=== PATIENT | female | born 1960 | race Caucasian/White ===

== ENCOUNTER 2016-09-11 07:39 | Emergency (ER) | payer BC ==
[2016-09-11 07:52] VITALS: BP 146/78
--- NOTE | 2016-09-11 08:28 | UC ---
Complaint Female HPI - HPI Summary HPI Summary: noticing blood in the urine. No frequency. No flank pain worse than her usual chronic back pain. No fever or vomiting. No history of blood in urine or kidney problems. Appetite fine. - History Of Current Complaint Chief Complaint: UC Stated Complaint: BLOOD IN URINE Time Seen by Provider: 09/11/16 08:13 Hx Obtained From: Patient Onset/Duration: Sudden Onset, Lasting Days - 3 Timing: Constant Severity Currently: None Character: Not Applicable Aggravating Factor(s): Nothing Alleviating Factor(s): Nothing Associated Signs And Symptoms: Positive: Back Pain - chronic problem, not worse in past 3 d. Negative: Vaginal Bleeding/Discharge, Vaginal Discharge, Nausea, Vomiting(# Of Episodes =), Genital Swelling, Genital Blisters - Risk Factors Ectopic Risk Factor: Negative Ovarian Torsion Risk Factor: Negative - Allergies/Home Medications Allergies/Adverse Reactions: Allergies Allergy/AdvReac Type Severity Reaction Status Date / Time Amoxicillin Allergy Hives Verified 09/11/16 07:44 Home Medications: Home Medications Calcium 500 mg PO DAILY 09/11/16 [History Confirmed 09/11/16] PMH/Surg Hx/FS Hx/Imm Hx Endocrine History Of: Reports: Diabetes - borderline Cardiovascular History Of: Reports: Hypertension Cancer History Of: Denies: Breast Cancer - Surgical History Surgical History: Yes Surgery Procedure, Year, and Place: c section. bilater cataract surgery - Family History Known Family History: Positive: Hypertension, Other - no kidney diseases - Social History Lives: With Family Alcohol Use: Rare Substance Use Type: None Smoking Status (MU): Former Smoker Type: Cigarettes Length of Time of Smoking/Using Tobacco: 30 years Have You Smoked in the Last Year: Yes When Did the Patient Quit Smoking/Using Tobacco: quit in march 2014 - Immunization History Most Recent Influenza Vaccination: fall 2015 Review of Systems Constitutional: Negative Skin: Negative Eyes: Negative ENT: Negative Respiratory: Negative Cardiovascular: Negative Gastrointestinal: Negative Genitourinary: Hematuria Motor: Negative Neurovascular: Negative Musculoskeletal: Negative Neurological: Negative Psychological: Negative All Other Systems Reviewed And Are Negative: Yes Physical Exam Triage Information Reviewed: Yes Appearance: Well-Appearing, No Pain Distress, Well-Nourished Vital Signs: Initial Vital Signs Temp 97.0 F 09/11/16 07:47 Pulse 73 09/11/16 07:47 Resp 16 01/07/17 07:47 BP 146/78 09/11/16 07:47 Pulse Ox 98 09/11/16 07:47 Vital Signs Reviewed: Yes Eye Exam: Normal Neck exam: Normal Respiratory Exam: Normal Cardiovascular Exam: Normal Abdominal Exam: Normal Abdomen Description: Positive: Nontender Musculoskeletal Exam: Normal Neurological Exam: Normal Psychological Exam: Normal Skin Exam: Normal Diagnostics - Laboratory Diagnostic Studies Completed/Ordered: dip U/A shows 3+ blood, trace leuks Complaint Female Dx - Course Course Of Treatment: will do a microscopic U/A. If true blood in urine, refer to Urology. Discussed with patient - Differential Dx/Diagnosis Differential Diagnosis/HQI/PQRI: Ureteral Stone, Urinary Tract Infection Provider Diagnoses: hematuria Discharge - Discharge Plan Condition: Stable Disposition: HOME Prescriptions: Ciprofloxacin HCl [Cipro] 500 mg PO BID #14 tab Patient Education Materials: Hematuria (ED) Referrals: Celeste Mullen MD [Primary Care Provider] - Alex Chong MD [Medical Doctor] - Additional Instructions: Our dip test indicates that you have heme in your urine. This could be from blood somewhere in the urinary tract. It could also be from muscle breakdown. Further testing will be done on the urine today to determine which source the heme is coming from. If the further testing shows that you have blood in the urinary tract, you will need to follow up with a Urologist. Blood in the urinary tract can sometimes signify a serious problem, and over the age of 50 requires further investigation. Most often, blood in the urinary tract goes along with infection, so you will be placed on an antibiotic to treat an infection today. Call here tomorrow to get the results of your urine test. If it shows blood, then call Dr. Chong's office to schedule a follow-up
[2016-09-11 12:26] LABS: Urine Bacteria Absent (Absent); Urine Bilirubin Negative (Negative); Urine Glucose Negative (Negative); Urine Nitrite Negative (Negative)
== END 2016-09-11 08:35 | disposition home or self-care (01) ==
LOC: UCEAST 07:39
DX: R31.9 Hematuria, unspecified (principal); R73.03 Prediabetes; I10 Essential (primary) hypertension; Z87.891 Personal history of nicotine dependence; Z88.1 Allergy status to other antibiotic agents
CPT/HCPCS: 81002; 81003; 81015; 87086; 99212; G0463

== ENCOUNTER 2016-09-14 01:00 | Emergency (ER) | payer BC ==
[2016-09-14] MEDS ORDERED: HYDROmorphone INJ* 1 MG/ML CARPUJECT SYRINGE IV ONE (01:52)
[2016-09-14 01:53] LABS: Hematocrit 37 % (35-47); Hemoglobin 12.5 g/dl (12.0-16.0); Mean Corpuscular HGB Conc 33 g/dl (31-36); Mean Corpuscular Hemoglobin 32 pg (27-31); Mean Corpuscular Volume 96 fL (80-97); Mean Platelet Volume 9 um3 (7.4-10.4); Red Cell Distribution Width 13 % (10.5-15); White Blood Count 7.7 10^3/ul (3.5-10.8)
[2016-09-14] MEDS ORDERED: HYDROmorphone INJ* 1 MG/ML CARPUJECT SYRINGE ONE (01:54)
[2016-09-14 02:09] LABS: Albumin 3.8 g/dL (3.2-5.2); BUN/Creatinine Ratio 19.8 (8-20); Calcium 9.3 mg/dL (8.6-10.3); EGFR African American 87.5 (>60); Globulin 2.8 g/dL (2-4); Total Bilirubin 0.3 mg/dL (0.2-1.0); Total Protein 6.6 g/dL (6.4-8.9)
[2016-09-14 02:11] LABS: Troponin I 0.01 ng/mL (<0.04)
[2016-09-14 02:14] LABS: Potassium 3.4 mmol/L (3.5-5.0)
[2016-09-14] MEDS ORDERED: Ketorolac INJ* 30 MG/ML 1 ML VIAL IV ONE (02:40)
[2016-09-14] MEDS ORDERED: Iohexol 350* (CONTRAST) 500 ML MDV IV ONE (02:49)
[2016-09-14] MEDS ORDERED: oxyCODONE/Acetamin 5/325 MG* TAB PO ONE (03:58)
[2016-09-14 04:31] VITALS: BP 156/69
--- NOTE | 2016-09-14 06:41 | ED ---
brian Ruiz Timothy, scribed for Alvaro Ramirez MD on 09/14/16 at 0128 . HPI Cardiac - HPI Summary HPI Summary: Noelle Neal is a 56 yo female presenting to [facility] with fast and irregular heartbeat, and pain on her lateral right side below her ribs extending to her right flank at 0023. The pain has currently resolved. She was at rest. She states she had blood in her urine on 09/11/2016, for which she went to [facility]. She denies fevers, chills, CP, SOB, or any other Sx. Her Hx includes HTN and borderline DM. - History of Current Complaint Stated Complaint: FAST HEART RATE/HEART SKIPS A BEAT Time Seen by Provider: 09/14/16 01:21 Hx Obtained From: Patient Onset/Duration: Started Minutes Ago, Still Present Time of Onset: 00:24 Timing: Constant Initial Severity: Moderate Current Severity: Moderate Pain Intensity: 0 Pain Scale Used: 0-10 Numeric Chest Pain Radiates: No Character: Fluttering Associated Signs and Symptoms: Positive: Palpitations - Allergy/Home Medications Allergies/Adverse Reactions: Allergies Allergy/AdvReac Type Severity Reaction Status Date / Time Amoxicillin Allergy Hives Verified 09/11/16 07:44 PMH/Surg Hx/FS Hx/Imm Hx Endocrine/Hematology History: Reports: Hx Diabetes - borderline Cardiovascular History: Reports: Hx Hypertension - Cancer History Hx Chemotherapy: No Hx Radiation Therapy: No - Surgical History Surgery Procedure, Year, and Place: c section. bilater cataract surgery Infectious Disease History: Denies: Hx Clostridium Difficile, Hx Hepatitis, Hx Human Immunodeficiency Virus (HIV), Hx of Known/Suspected MRSA, Hx Shingles, Hx Tuberculosis, Hx Known/ Suspected VRE, Hx Known/Suspected VRSA, History Other Infectious Disease - Family History Known Family History: Positive: Hypertension, Other - no kidney disease - Social History Alcohol Use: Rare Substance Use Type: Reports: None Smoking Status (MU): Former Smoker - 30 years, quit 2-3 years ago Type: Cigarettes Length of Time of Smoking/Using Tobacco: 30 years Have You Smoked in the Last Year: Yes Review of Systems Constitutional: Negative Eyes: Negative ENT: Negative Positive: Palpitations Respiratory: Negative Positive: Abdominal Pain - upper right side Positive: hematuria Musculoskeletal: Negative Skin: Negative Neurological: Negative Psychological: Normal All Other Systems Reviewed And Are Negative: Yes Physical Exam - Summary Physical Exam Summary: GENERAL: Awake, alert, oriented, no acute distress, very pleasant HEENT: Head is normocephalic, atraumatic, anicteric sclera, clear conjunctiva, mucous membranes moist, no erythema, no discharge, no lesions, neck is supple, trachea is midline, no JVD CARDIAC: Regular rate and rhythm, S1, S2, no rub, no murmur, no gallop, 2+ radial and pedal pulses bilaterally, occasional extra systolic beats. RESPIRATORY: Clear to auscultation bilaterally with no rales, rhonchi, or wheezes, non-tender ABDOMEN: Bowel sounds positive, no bruit, soft, non-tender, no CVA tenderness EXTREMITIES: No edema, warm, dry, moving all extremities in a grossly normal manner NEUROLOGICAL: Mood is appropriate, moving all extremities in a grossly normal manner Triage Information Reviewed: Yes Vital Signs On Initial Exam: Initial Vital Signs Resp 18 09/14/16 01:58 Vital Signs Reviewed: Yes Diagnostics - Laboratory Result Diagrams: 09/14/16 01:30 09/14/16 01:30 Lab Statement: Any lab studies that have been ordered have been reviewed, and results considered in the medical decision making process. - Radiology CXR Xray Interpretation: No Acute Changes - No acute disease Radiology Interpretation Completed By: ED Physician - CT A/P CT Interpretation: Positive (See Comments) - moderate right hydronephrosis with a 5 mm stone in the proximal right ureter. Constipatipation without diverticulosis without diverticulitis. CT Interpretation Completed By: Radiologist CTA chest/thorax CT Interpretation: Positive (See Comments) - No large central PE. Mild cardiomegaly with calcified cornary arteriosclerosis noted. Small hiatal hernia. Hepatomgealy and steatosis. Moderate right nydronephrosis with a 5 mm stone in the proximal right ureter. CT Interpretation Completed By: Radiologist - EKG 0107 Cardiac Rate: NL EKG Interpretation: NSR@ 89 BPM with PVC's Re-Evaluation - Re-Evaluation First Eval Re-Evaluation Time: 04:29 Change: Unchanged Comment: Pt is being informed of results of imaging and lab tests. Discussed course of Tx. Disposition - Diagnoses Provider Diagnoses: Right nephrolithiasis Discharge - Discharge Plan Condition: Stable Disposition: HOME Prescriptions: Ondansetron ODT TAB* [Zofran Odt TAB*] 4 mg PO Q8H PRN #10 tab.odt PRN Reason: Nausea Tamsulosin CAP* [Flomax CAP*] 0.4 mg PO BID #10 cap Patient Education Materials: Kidney Stones (ED) Referrals: Celeste Mullen MD [Primary Care Provider] - If Needed Alex Chong MD [Medical Doctor] - 2 Days Additional Instructions: Return to the emergency department with any new or worsening symptoms. Follow up with Dr. Chong within 2 days. The documentation as recorded by the brian seymour Timothy accurately reflects the service I personally performed and the decisions made by , Alvaro Ramirez MD.
--- NOTE | 2016-09-14 07:41 | RAD ---
HISTORY: Chest pain, tachycardia COMPARISONS: None VIEWS:1: Single frontal portable view of the chest at 1:35 AM FINDINGS: LINES AND TUBES: None. CARDIOMEDIASTINAL SILHOUETTE: The cardiomediastinal silhouette is normal for portable technique and the phase of inspiration. PLEURA: The costophrenic angles are sharp. No pleural abnormalities are noted. LUNG PARENCHYMA: The lung volumes are low. The lungs are clear accounting for the phase of inspiration. ABDOMEN: The upper abdomen is clear. There is no subphrenic gas. BONES AND SOFT TISSUES: No bone or soft tissue abnormalities are noted. IMPRESSION: LOW LUNG VOLUMES. NO ACTIVE CARDIOPULMONARY DISEASE.
--- NOTE | 2016-09-14 07:50 | RAD ---
CLINICAL HISTORY: Abdominal pain COMPARISON: None TECHNIQUE: Multiple contiguous axial CT scans were obtained of the abdomen and pelvis, without intravenous contrast enhancement. Coronal and sagittal multiplanar reformations are submitted for review. Oral contrast was not administered. FINDINGS: The study is limited by the lack of intravenous contrast. This limits evaluation of the solid organs and vasculature. LUNG BASES: The lung bases are clear. LIVER: The liver is diffusely low in attenuation compared to the spleen. There is fatty sparing along the gallbladder fossa.. BILE DUCTS: There is no intrahepatic or extrahepatic biliary dilatation. GALLBLADDER: The gallbladder is normal, without pericholecystic inflammatory change. PANCREAS: The pancreas is normal, without mass or ductal dilatation. SPLEEN: Normal in size and appearance. UPPER GI TRACT: Evaluation of the gastrointestinal tract is limited by incomplete gastric distention. The upper GI tract is unremarkable. SMALL BOWEL AND MESENTERY: The small bowel is normal in contour, course, and caliber. There is no obstruction or dilatation. COLON: The colon is normal in contour, course, caliber. There are a few scattered diverticula of the distal colon. There is no pericolonic inflammatory change. There is a tubular, vermiform, hollow viscus that is blind ending, and originates from the cecum, consistent with a normal appendix. There is no periappendiceal inflammatory change. This is best seen on axial images 97 through 106. ADRENALS: Normal bilaterally. KIDNEYS: There is a 0.5 cm calculus of the right UPJ with moderate pelviectasis. There is a nonobstructive calyceal stone of the lower pole of left kidney. BLADDER: The bladder is smooth in contour. PELVIC ORGANS: The uterus and adnexa are grossly normal for technique. AORTA: There is calcific atherosclerotic disease of the abdominal aorta and its branches, without aneurysmal dilatation IVC: Unremarkable LYMPH NODES: There is no lymphadenopathy by size criteria. ABDOMINAL WALL: There is no evidence for abdominal wall hernia. BONES AND SOFT TISSUES: There is diffuse osteopenia. There are age-indeterminate compression deformity is of L2 and L3, without significant osseous retropulsion. There is degenerative disc disease and osteoarthritis OTHER: None IMPRESSION: 1. BILATERAL NEPHROLITHIASIS, INCLUDING A 0.5 CM RIGHT UPJ STONE WITH MODERATE RIGHT PELVIECTASIS. 2. FATTY LIVER. 3. ATHEROSCLEROSIS. 4. OSTEOPENIA WITH AGE INDETERMINATE COMPRESSION DEFORMITIES OF L2 AND L3, WITHOUT OSSEOUS RETROPULSION
--- NOTE | 2016-09-14 07:53 | RAD ---
HISTORY: Chest pain COMPARISONS: CT of the abdomen and pelvis dated September 14, 2016 TECHNIQUE: Multiple contiguous axial CT scans of the chest were obtained after the administration of nonionic intravenous contrast, timed to the pulmonary arterial phase of contrast enhancement.. Coronal and sagittal multiplanar reformations are also submitted for review. FINDINGS: NECK AND THYROID: The lower neck and thyroid are unremarkable. CHEST WALL: There is no lower cervical, axillary, or supraclavicular lymphadenopathy by size criteria. HEART AND PERICARDIUM: Coronary and valvular cardiac calcifications are noted. AORTA AND PULMONARY VASCULATURE: There is no pulmonary arterial filling defect to suggest pulmonary embolism. There is no linear filling defect within the aorta to suggest aortic dissection. MEDIASTINUM: There is no mediastinal lymphadenopathy by size criteria. SURESH: There is no hilar lymphadenopathy by size criteria. AIRWAY AND ESOPHAGUS: The airway is unremarkable, without endobronchial filling defect. The esophagus is grossly normal. LUNG PARENCHYMA: The lungs are clear. PLEURA: No pleural abnormalities are noted. UPPER ABDOMEN: Again noted is fatty infiltration of the liver with right pelviectasis and left nephrolithiasis. BONES AND SOFT TISSUES: There is diffuse osteopenia. Degenerative changes are noted of the spine. There is a chronic appearing fracture of the right eighth rib. OTHER: None. IMPRESSION: 1. NO PULMONARY ARTERIAL FILLING DEFECT TO SUGGEST PULMONARY EMBOLISM. 2. CHRONIC APPEARING RIGHT-SIDED RIB FRACTURE
== END 2016-09-14 04:40 | disposition home or self-care (01) ==
LOC: ED 01:00
DX: N20.0 Calculus of kidney (principal); R00.2 Palpitations; Z87.891 Personal history of nicotine dependence
CPT/HCPCS: 36415; 71010; 71275; 74176; 80053; 82550; 83874; 83880; 84484; 85025; 85379; 85610; 85730; 93005; 96374; 96375; 99283; A9270-GY; J1170; J1885; Q9967

== ENCOUNTER → 2018-09-28 15:17 | Emergency (ER) | payer BC ==
[~2018-09-28 15:17] MED LIST: oxyCODONE/Acetamin 5/325 MG* TAB PO ONE
--- NOTE | 2018-09-28 17:11 | ED ---
Lower Extremity - HPI Summary HPI Summary: 58-year-old female presents with right knee injury today. She states that she slipped on the tile floor and twisted her right knee and landed on it. States she's not able to place weight on the area. She denies any ankle pain. No other injury. She is diabetic and has high blood pressure. she denies any previous fracture area. Did not hit head. fall was mechanical fall. she is diabetic and has history of HTN. - History of Current Complaint Chief Complaint: EDExtremityLower Stated Complaint: FALL/RT KNEE INJURY Time Seen by Provider: 09/28/18 16:07 Pain Intensity: 10 - Allergies/Home Medications Allergies/Adverse Reactions: Allergies Allergy/AdvReac Type Severity Reaction Status Date / Time amoxicillin Allergy Hives Verified 09/28/18 16:15 PMH/Surg Hx/FS Hx/Imm Hx Endocrine/Hematology History: Reports: Hx Diabetes - borderline Cardiovascular History: Reports: Hx Hypertension Denies: Hx Pacemaker/ICD History: Denies: Hx Renal Disease Musculoskeletal History: Reports: Hx Osteoporosis Sensory History: Denies: Hx Hearing Aid Psychiatric History: Denies: Hx Panic Disorder - Cancer History Hx Chemotherapy: No Hx Radiation Therapy: No - Surgical History Surgery Procedure, Year, and Place: c section. bilater cataract surgery Infectious Disease History: No Infectious Disease History: Denies: Hx Clostridium Difficile, Hx Hepatitis, Hx Human Immunodeficiency Virus (HIV), Hx of Known/Suspected MRSA, Hx Shingles, Hx Tuberculosis, Hx Known/ Suspected VRE, Hx Known/Suspected VRSA, History Other Infectious Disease, Traveled Outside the [place] in Last 30 Days - Family History Known Family History: Positive: Hypertension, Other - no kidney disease - Social History Alcohol Use: Rare Substance Use Type: Reports: None Smoking Status (MU): Former Smoker Type: Cigarettes Length of Time of Smoking/Using Tobacco: 30 years Have You Smoked in the Last Year: Yes Review of Systems Negative: Fever Negative: Chest Pain Negative: Shortness Of Breath Positive: Myalgia - right knee pain All Other Systems Reviewed And Are Negative: Yes Physical Exam Triage Information Reviewed: Yes Vital Signs On Initial Exam: Initial Vitals Temp Pulse Resp BP Pulse Ox 97.6 F 46 16 164/67 95 09/28/18 15:24 09/28/18 15:24 09/28/18 15:24 09/28/18 15:24 09/28/18 15:24 Vital Signs Reviewed: Yes Appearance: Positive: Well-Appearing Skin: Positive: Warm, Dry Head/Face: Positive: Normal Head/Face Inspection Eyes: Positive: Normal, Conjunctiva Clear ENT: Positive: Pharynx normal Respiratory/Lung Sounds: Positive: Clear to Auscultation, Breath Sounds Present Cardiovascular: Positive: Normal, RRR Abdomen Description: Positive: Nontender, Soft Bowel Sounds: Positive: Present Musculoskeletal: Positive: Limited @ - right knee, Other - tenderness lateral right knee, good pulses, capillary refill<2 secs, nontender ankle or hip Neurological: Positive: Normal Psychiatric: Positive: Normal Procedures - Splinting leg Location: right leg Hand-Made Type: orthoglass Splint: posterior long Pre-Proc Neuro Vasc Exam: normal Post-Proc Neuro Vasc Exam: normal Diagnostics - Vital Signs Vital Signs Temp Pulse Resp BP Pulse Ox 09/28/18 15:24 97.6 F 46 16 164/67 95 - Laboratory Lab Statement: Any lab studies that have been ordered have been reviewed, and results considered in the medical decision making process. - Radiology knee Radiology Interpretation Completed By: Radiologist Summary of Radiographic Findings: IMPRESSION: The findings are consistent with a minimally displaced right lateral tibial plateau. fracture with right knee hemarthrosis. Lower Extremity Course/Dx - Course Course Of Treatment: 58-year-old female presents with right knee injury today. She states that she slipped on the tile floor and twisted her right knee and landed on it. States she's not able to place weight on the area. She denies any ankle pain. No other injury. She is diabetic and has high blood pressure. she denies any previous fracture area. Did not hit head. fall was mechanical fall. tendenress over lateral aspect of right knee. neurovascular intact. xray shows lateral tibia plateau fracture. placed in posterior long. gave walker and made nonweight bearing. informed dr hemphill about patient for follow up. told to call ortho office tomorrow. patient understand and agrees with plan. - Diagnoses Differential Diagnosis/HQI/PQRI: Positive: Fracture (Closed), Sprain, Strain Provider Diagnoses: Tibial plateau fracture Discharge - Sign-Out/Discharge Documenting (check all that apply): Patient Departure - Discharge Plan Condition: Good Disposition: HOME Prescriptions: oxyCODONE/Acetamin 5/325 MG* [Percocet 5/325 TAB*] 1 tab PO Q6H PRN #20 tab MDD 4 PRN Reason: Pain Patient Education Materials: Leg Fracture (ED) Forms: *Work Release Referrals: Celeste Mullen MD [Primary Care Provider] - Vanessa Hemphill MD [Medical Doctor] - Additional Instructions: stay nonweight bearing Keep splint on area and keep dry Call ortho office tomorrow to set up appointment for follow up Use ibuprofen for pain every 6 hours and use narcotic for breakthrough pain very 6 hours Ice, elevate Return to ED if develop numbness or tingling or any new or worsening symptoms - Billing Disposition and Condition Condition: GOOD Disposition: Home
[2018-09-28 18:36] VITALS: BP 155/78
== END | disposition home or self-care (01) ==
LOC: ED 15:17
DX: S82.141A Displaced bicondylar fracture of right tibia, initial encounter for closed fracture (principal); M25.561 Pain in right knee; Z87.891 Personal history of nicotine dependence; W01.0XXA Fall on same level from slipping, tripping and stumbling without subsequent striking against object, initial encounter; Y92.9 Unspecified place or not applicable
CPT/HCPCS: 99283; A9270-GY

== ENCOUNTER 2018-10-05 05:42 | Inpatient (IN) | payer BC, OTHER ==
[~2018-10-05 05:42] MED LIST changes: +Buffered Lidocaine 1% SYRIN* 1 ML/SYRINGE INTRADERM ONE; -oxyCODONE/Acetamin 5/325 MG* TAB PO ONE
[2018-10-05] MEDS ORDERED: Lactated Ringers 1000 ML Bag* 1,000 ML IV SCH ×2 (06:00→10:00)
[2018-10-05] MEDS ORDERED: Famotidine IV* 10 MG/ML 2 ML (20 mg) IV ONE (06:00)
[2018-10-05] MEDS ORDERED: Metoclopramide IV* 5 MG/ML 2 ML VIAL IV SLOW PU ONE (06:00)
[2018-10-05] MEDS ORDERED: Metoclopramide IV* 5 MG/ML 2 ML VIAL ONE (06:30)
[2018-10-05] MEDS ORDERED: Famotidine IV* 10 MG/ML 2 ML (20 mg) ONE (06:30)
[2018-10-05] MEDS ORDERED: Clindamycin 900 MG/D5W BAG(*) 900 MG/50 ML BAG IVPB ONE (06:30)
[2018-10-05] MEDS ORDERED: Rocuronium* 10 MG/ML VIAL ONE (07:20)
[2018-10-05] MEDS ORDERED: fentaNYL* 50 MCG/ML 2 ML VIAL (100 MCG VIAL) ONE ×2 (07:20→08:56)
[2018-10-05] MEDS ORDERED: Midazolam* 1 MG/ML 2 ML VIAL (2 MG) ONE (07:20)
[2018-10-05] MEDS ORDERED: ROPIVACAINE 5 MG/ML 30 ML BTL (0.5%) ONE (07:25)
[2018-10-05] MEDS ORDERED: Lidocaine 1%* 5 ML VIAL ONE (07:25)
[2018-10-05] MEDS ORDERED: Bupivacaine 0.5%* 50 ML VIAL ONE (07:53)
[2018-10-05] MEDS ORDERED: DiMENhydriNATE IV* 50 MG/ML VIAL IV PUSH PRN (08:33)
[2018-10-05] MEDS ORDERED: HYDROmorphone INJ1* 1 MG/ML SYRINGE IV PRN (08:33)
[2018-10-05] MEDS ORDERED: fentaNYL* 50 MCG/ML 2 ML VIAL (100 MCG VIAL) IV PRN (08:33)
[2018-10-05] MEDS ORDERED: PROCHLORPERAZINE INJ 5 MG/ML 2 ML VIAL IV PRN (08:33)
[2018-10-05] MEDS ORDERED: Naloxone* 0.4 MG/ML 1 ML VIAL IV PRN (08:33)
[2018-10-05] MEDS ORDERED: Acetaminophen TAB* 325 MG PO PRN (08:33)
[2018-10-05] MEDS ORDERED: HYDROcodone/ACETAMIN 5-325 MG* 1 TAB PO PRN (08:33)
[2018-10-05] MEDS ORDERED: Ketorolac INJ* 30 MG/ML 1 ML VIAL IV PRN (08:33)
[2018-10-05] MEDS ORDERED: Propofol* 10 MG/ML 20 ML BTL ONE (08:38)
[2018-10-05] MEDS ORDERED: EPHEDrine (Pressors)* 50 MG/ML VIAL ONE (08:38)
[2018-10-05] MEDS ORDERED: Ondansetron INJ* 2 MG/ML VIAL ONE (09:27)
[2018-10-05] MEDS ORDERED: diPHENhydraMINE IV* 50 MG/ML 1 ml VIAL (BENADRYL) IV PRN (09:33)
[2018-10-05] MEDS ORDERED: traZODone TAB* 50 MG TAB PO PRN (09:33)
[2018-10-05] MEDS ORDERED: Ondansetron TAB* 4 MG PO PRN (09:33)
[2018-10-05] MEDS ORDERED: HYDROcodone/ACETAMIN 5-325 MG* 1 TAB ONE (10:21)
[2018-10-05] MEDS: Acetaminophen TAB* 325 MG PO SCH ×2 (13:03→19:57)
[2018-10-05] MEDS: oxyCODONE TAB* 5 MG TAB PO PRN ×2 (13:55→20:04)
[2018-10-05 14:01] LABS: BUN/Creatinine Ratio 15.8 (8-20); Calcium 9.2 mg/dL (8.6-10.3); EGFR Non-African American 38.8 (>60); Magnesium 1.7 mg/dL (1.9-2.7); Potassium 3.7 mmol/L (3.5-5.0)
[2018-10-05] MEDS: Clindamycin 600 MG IVPREMIX(* 600 MG/50 ML SDV IV SCH (15:38)
--- NOTE | 2018-10-05 16:47 | OP ---
Operative Report - Blank - Operative Report Date of Operation: 10/05/18 Note: PATIENT: Noelle Neal DATE OF : 1960 DATE OF SURGERY: 10/05/2018 SURGEON: Greg Cortez MD SAND MIXER: ALICIA Woodall, whos assistance was necessary for positioning, retraction, help with instrumentation, and closure. ANESTHESIOLOGIST: Dr. Jerson Panda PREOPERATIVE DIAGNOSIS: Right lateral tibial plateau fracture POSTOPERATIVE DIAGNOSIS: Right lateral tibial plateau fracture OPERATION: Right lateral tibial plateau fracture open reduction and internal fixation ANESTHESIA: General + block IMPLANTS: Synthes proximal tibia plate TOURNIQUET TIME: Less than 2 hours with a well-padded thigh tourniquet SPECIMENS: none ESTIMATED BLOOD LOSS: minimal COMPLICATIONS: none STATUS: Stable from the operating room to the recovery room and then to the hospital floor. INDICATIONS FOR PROCEDURE: Noelle sustained a displaced split/depression right tibial plateau fracture. Both operative and non operative treatment alternatives were reviewed. Further, the nature and risks of surgery were reviewed in careful detail, in the office as well as the pre-operative holding area. Our discussions regarding the risks of surgery included, but were not limited to, infection, wound problems, nerve injury, neuroma, RSD, persistent symptoms, blood clot, failure of the surgery, posttraumatic arthritis, malunion, nonunion, compartment syndrome, and even the remote chance of catastrophic complication, including loss of limb or . DESCRIPTION OF PROCEDURE: The patient was seen in the preoperative holding unit and informed written consent was obtained. The appropriate extremity was marked. The patient was then brought to the operating room and carefully positioned on the operating room table. Anesthesia was induced. All bony prominences were padded with great care. A well-padded thigh tourniquet was placed. A chlorhexidine based pre- scrub was performed followed by a chloraprep prep and drape in standard sterile fashion. A surgical safety pause was then conducted in which we confirmed the appropriate patient, extremity, planned procedure, availability of equipment, indication and administration of prophylactic antibiotics, and DVT prophylaxis in the form of a compression boot on the non-surgical extremity. We began with an Esmarch exsanguination of the limb and inflated the tourniquet. An S-shaped longitudinal incision was made laterally at the knee and proximal tibia. I dissected down to the fascial layer. The tibialis anterior was then reflected posteriorly to expose the proximal lateral tibia. An arthrotomy was then made at the lateral joint line distal to the lateral meniscus. This provided visualization of the lateral plateau as well as the lateral meniscus. No meniscal tear was appreciated. I then windowed open the split fracture to gain access the depressed part of the lateral plateau. Bone tamps were then used to elevate the articular surface of the lateral tibial plateau. The fracture was then reduced and provisionally held with rafting K wires. Fluoroscopy was used to confirm the reduction. A Synthes anatomic proximal tibia plate was then placed along the lateral proximal tibia. Fluoroscopy was used to confirm placement of the plate. I then placed the 3.5 mm screws into the plate and the provisional fixation was removed. Synthes calcium phosphate cement (Norian) was then injected to fill the void and support the now-reduced depressed lateral plateau. Fluoroscopy confirmed maintained reduction of the fracture and satisfactory hardware placement. The meniscocapsular ligaments were then repaired to close the arthrotomy. The tourniquet was then released and meticulous hemostasis achieved. Final fluoroscopic images were then obtained. The wound was copiously irrigated again. The wound was then closed in a layered fashion utilizing #1 Vicryl for the deep layer, 3-0 Monocryl for the dermal layer, and skin breanne for the skin. A sterile dressing was then applied, as well as a [place] brace with the knee locked in extension. The patient was then awakened from anesthesia and transferred to the recovery room in stable condition. There were no complications. All needle and sponge counts were correct at the end of the case. ATTESTATION: I attest I was present and scrubbed and performed the critical portions of the procedure myself. POSTOPERATIVE PLAN: The plan is to remain touch down weight-bearing for an anticipated duration of 2 months. Range of motion as tolerated in the knee with the [place] brace on. The plan is for chemical DVT prophylaxis for 1 month postoperatively with Lovenox 40mg QD. Follow-up in 2 weeks for likely staple removal.
[2018-10-05] MEDS ORDERED: Magnesium Sulfate 2 GM IV* 2 GM/50 ML BAG IVPB ONE (17:08)
[2018-10-05] MEDS ORDERED: Dextrose 50% Syringe 50 ML* 25 GM/50 ML SYRINGE IV PUSH PRN (17:09)
[2018-10-05] MEDS ORDERED: Calcium Carbonate TAB* 1250 MG (CALCIUM 500 MG) PO SCH (21:00)
[2018-10-05] MEDS ORDERED: metFORMIN* 500 MG TAB PO SCH (21:00)
[2018-10-05] MEDS: Atorvastatin* 10 MG TAB PO SCH (22:32)
[2018-10-05] MEDS: Calcium Carbonate TAB* 1250 MG (CALCIUM 500 MG) PO SCH (22:33)
[2018-10-05] MEDS: Docusate CAP* 100 MG PO SCH (22:33)
[2018-10-05] MEDS: Cholecalciferol TAB* 1000 UNITS PO SCH (22:33)
[2018-10-05] MEDS: Aspirin 81 mg CHEW TAB* 81 MG TAB.CHEW PO SCH (22:33)
[2018-10-05] MEDS: Losartan TAB* 25 MG PO SCH (22:34)
[2018-10-06] MEDS: Clindamycin 600 MG IVPREMIX(* 600 MG/50 ML SDV IV SCH ×3 (01:12→07:44)
[2018-10-06] MEDS: oxyCODONE TAB* 5 MG TAB PO PRN ×5 (01:19→20:44)
[2018-10-06] MEDS: Acetaminophen TAB* 325 MG PO SCH ×3 (04:13→20:38)
[2018-10-06 07:07] LABS: Hematocrit 36 % (35-47); Hemoglobin 12.2 g/dl (12.0-16.0); Mean Platelet Volume 8.8 fL (7.4-10.4); Platelet Count 145 10^3/ul (150-450)
[2018-10-06 07:26] LABS: BUN/Creatinine Ratio 13.7 (8-20); Calcium 9.3 mg/dL (8.6-10.3); EGFR African American 67.1 (>60); EGFR Non-African American 55.5 (>60); Potassium 3.4 mmol/L (3.5-5.0)
--- NOTE | 2018-10-06 07:42 | CONS ---
HOSPITAL MEDICINE CONSULTATION REPORT: DATE OF CONSULT: 10/05/18 ATTENDING PHYSICIAN: Dr. Millard. CONSULTING PHYSICIAN: Dr. Isa Leonardo (dictated by Sil Veras NP) REASON FOR CONSULT: Hypertension and diabetes. HISTORY OF PRESENT ILLNESS: Ms. Neal is a 58-year-old female who slipped on her tile floor, twisting and landing on her right knee on 09/28/18. At that time she sustained a minimally displaced right tibial plateau fracture. She has been followed by Orthopedics, who opted to do an open repair of the tibial plateau fracture. She presented to [facility] today on 10/05/18 for the right tibial toe fracture repair with Dr. Millard. For further details, please refer to the H and P from Orthopedics. In the immediate postoperative period, the patient has no complaints. The patient denies any preoperative nausea, vomiting , diarrhea, fever, chills, chest pain or shortness of breath. Due to her history of hypertension and diabetes, Hospital Medicine was asked to consult. PAST MEDICAL HISTORY: 1. Hypertension. 2. Type 2 diabetes. 3. High cholesterol. 4. Diverticulitis. 5. Arthritis. PAST SURGICAL HISTORY: 1. . 2. Eye surgery. HOME MEDICATIONS: 1. Metformin 500 mg p.o. at bedtime. 2. Lovastatin 40 mg p.o. at bedtime. 3. Losartan 75 mg p.o. at bedtime. 4. Vitamin D3 1 tablet p.o. at bedtime. 5. Aspirin 81 mg p.o. at bedtime. 6. Calcium 500 mg p.o. at bedtime. 7. Oxycodone/acetaminophen 5/325 1 tablet q.6 hours as needed for pain. ALLERGIES: She has an allergy to AMOXICILLIN. FAMILY HISTORY: No reported history of coronary artery disease. Mother and father both have diabetes. Father with a history of colon cancer. SOCIAL HISTORY: Denies any alcohol, tobacco, or illicit drug use. She lives with her , Petr. Surrogate decision maker in the event she is unable to make her own decisions is her , Petr. She is a full code. REVIEW OF SYSTEMS: General: There is no fever, chills or unintended weight loss. Denies any chest pain, shortness of breath or edema. Denies any cough, congestion, hemoptysis, or shortness of breath. Denies any nausea, vomiting or diarrhea. Denies any gross hematuria, dysuria, focal weakness or sensory loss. Denies any visual complaints, seizures, arthralgias or myalgias, rashes, lesions , or open sores. Denies any psychosis or anxiety. PHYSICAL EXAM: General: At this time, Ms. Neal is lying in her hospital bed. She is alert and oriented x3. She is in no acute distress. HEENT: Head is atraumatic, normocephalic. Eyes: EOMs are intact. Sclerae anicteric and not pale. Oral mucosa appeared to be moist. Neck is supple. Lungs are clear to auscultation bilaterally. No wheezes, rales or rhonchi. Cardiac: S1, S2. Irregular rate and rhythm. The patient noted to be in bigeminy during her surgery. The patient denies any chest pain or heaviness. Abdomen is soft and nontender. Bowel sounds are present x4. Extremities: Pedal pulses are +2 bilaterally. Sensation is intact to bilateral lower extremities. She does have a knee immobilizer intact to her right knee with dressing that is also dry and intact. Neurological: She is awake, alert and oriented x3. Speech is clear. Thought process is intact. No gross focal deficits. Skin: She has got a dressing dry and intact to her right knee. LABORATORY DATA: Sodium was 137, potassium 3.7, chloride was 101, carbon dioxide was 30, anion gap was 6, BUN was 22, creatinine 1.39, calcium 9.2, magnesium 1.7, glucose was 150. WBCs on 10/03/18 were 7.3, RBCs 4.27, hemoglobin 13.9, hematocrit 41, platelet count was 212,000. INR was 1.00. Urine on 10/03/18 was negative except for leukocyte esterase was trace, WBCs were 1+, RBCs were trace, squamous epithelial cells were present. Urine bacteria was absent. Hyaline casts were present. IMPRESSION AND PLAN: Ms. Neal is a 58-year-old female who sustained a right tibial plateau fracture on 09/28/18 after a mechanical fall. She presented to [facility] for an open reduction of the right tibial plateau fracture. Hospital Medicine was asked to consult due to her history of diabetes and hypertension. Our recommendations are as follows: 1. Status post right tibial plateau fracture repair, management per Orthopedics , PT/OT per Orthopedics. Pain management per Orthopedics. 2. Hypertension. I will continue her on losartan 75 mg p.o. daily. 3. Diabetes. I would hold her metformin and glipizide at this time. I will place her on lispro sliding scale, Accu-Cheks a.c. 4. Hypomagnesemia. I will replace her magnesium and repeat her magnesium level in the morning. I suspect that the low magnesium level could be related to the bigeminy she had during her operative period. The patient again has no chest pain or shortness of breath, no chest heaviness and is asymptomatic. 5. Hyperlipidemia. She should continue on her statin as previously prescribed. 6. DVT prophylaxis per Orthopedics. 7. FEN. She can have heart healthy consistent carb diet. 8. She is a full code. TIME SPENT: Time spent on this consultation was approximately 45 minutes, more than half of that time was spent at the bedside reviewing events leading thus far to her hospitalization, performing physical exam and reviewing my plan of care. I have discussed this with my attending, Dr. Isa Leonardo, and she is in agreement with my plan. SIL VERAS, AIDS NURSE [id number]/[facility] #: [id number] ANTHONY
[2018-10-06] MEDS: Insulin LISPRO* 1 UNITS UNIT SUBCUT SCH ×3 (09:29→17:14)
[2018-10-06] MEDS: Enoxaparin(*) 40 MG/0.4 ML SYR SUBCUT SCH (09:30)
[2018-10-06] MEDS: Docusate CAP* 100 MG PO SCH ×2 (09:30→20:40)
--- NOTE | 2018-10-06 11:45 | PN ---
Progress Note - Progress Note Date of Service: 10/06/18 SOAP: Subjective: []Patient seen at bedside this am. Pain well managed while at rest. Yet to work with PT. Concerned about being able to ambulate on stairs in order to get in her house. She denies SOB, CP, palpitations or dizziness. Objective: [] Vital Signs Temp 98.3 F 10/06/18 11:31 Pulse 69 10/06/18 11:31 Resp 18 10/06/18 11:39 BP 136/58 10/06/18 11:31 Pulse Ox 97 10/06/18 11:31 Intake & Output 10/05/18 10/06/18 10/06/18 18:59 06:59 18:59 Intake Total 2602 2395 405 Output Total 900 1700 500 Balance 1702 695 -95 Intake: IV Fluids 1972 175 105 ABX - CLINDAMYCIN 55 55 LR 1811 Magnesium Sulfate 60 NS 60 50 IVPB 200 ABX - CLINDAMYCIN 100 Oral 430 2220 300 Output: Urine 900 1700 500 Laboratory Results - last 24 hr 10/05/18 10/05/18 10/06/18 13:22 17:21 06:47 Hgb 12.2 Hct 36 Plt Count 145 L MPV 8.8 Sodium 137 Potassium 3.7 Chloride 101 Carbon Dioxide 30 Anion Gap 6 BUN 22 Creatinine 1.39 H Est GFR ( Amer) 47.0 Est GFR (Non-Af Amer) 38.8 BUN/Creatinine Ratio 15.8 Glucose 150 H POC Glucose (mg/dL) 88 Calcium 9.2 Magnesium 1.7 L 10/06/18 10/06/18 06:47 08:20 Hgb Hct Plt Count MPV Sodium 136 Potassium 3.4 L Chloride 99 L Carbon Dioxide 31 Anion Gap 6 BUN 14 Creatinine 1.02 H Est GFR ( Amer) 67.1 Est GFR (Non-Af Amer) 55.5 BUN/Creatinine Ratio 13.7 Glucose 186 H POC Glucose (mg/dL) 209 H Calcium 9.3 Magnesium Right knee hinged knee brace on MATHEW dry and intact +DF right ankle sensation and circulation intact distally Assessment: []s/p ORIF right tibial plateau fracture POD #1 Plan: []PT/OT NWB RLE hinged knee brace on, off for skin care/ dressing changes only home vs rehab depending on how ambulation goes on stairs Lovenox for 1 month post op for DVT prophylaxis
--- NOTE | 2018-10-06 12:58 | PN ---
Subjective Date of Service: 10/06/18 Interval History: Pain currently 6-7/10 in both left knee and right shoulder - both the best they have been. Denies SOB, abdominal pain, fevers, chills, nausea, vomiting. No BM since here. Passing gas. No acute overnight events. Objective Active Medications: Acetaminophen (Tylenol Tab*) 975 mg PO Q8H [facility] Last Admin: 10/06/18 11:39 Dose: 975 mg Aspirin (Aspirin 81 Mg Chew Tab*) 81 mg PO BEDTIME [facility] Last Admin: 10/05/18 22:33 Dose: 81 mg Atorvastatin Calcium (Lipitor*) 10 mg PO BEDTIME [facility] Last Admin: 10/05/18 22:32 Dose: 10 mg Calcium Carbonate (Calcium Carbonate Tab*) 1,250 mg PO BEDTIME [facility] Last Admin: 10/05/18 22:33 Dose: 1,250 mg Cholecalciferol (Vitamin D Tab*) 1,000 units PO BEDTIME [facility] Last Admin: 10/05/18 22:33 Dose: 1,000 units Dextrose (D50w Syringe 50 Ml*) 12.5 gm IV PUSH .FOR FS < 60 - SS PRN PRN Reason: FS < 60 Diphenhydramine HCl (Benadryl Iv*) 25 mg IV Q6H PRN PRN Reason: itching Docusate Sodium (Colace Cap*) 100 mg PO BID [facility] Last Admin: 10/06/18 09:30 Dose: 100 mg Enoxaparin Sodium (Lovenox(*)) 40 mg SUBCUT Q24H [facility] Last Admin: 10/06/18 09:30 Dose: 40 mg Lactated Ringer's (Lactated Ringers 1000 Ml Bag*) 1,000 mls @ 75 mls/hr IV PER RATE [facility] Last Admin: 10/05/18 13:56 Dose: 75 mls/hr Insulin Human Lispro (Humalog*) 0 units SUBCUT AC [facility]; Protocol Last Admin: 10/06/18 09:29 Dose: 4 units Losartan Potassium (Cozaar Tab*) 75 mg PO BEDTIME [facility] Last Admin: 10/05/18 22:34 Dose: 75 mg Ondansetron HCl (Zofran Tab*) 4 mg PO Q6H PRN PRN Reason: NAUSEA Oxycodone HCl (Roxycodone Tab*) 10 mg PO Q4H PRN PRN Reason: PAIN - SEVERE Last Admin: 10/06/18 11:39 Dose: 10 mg Oxycodone HCl (Roxycodone Tab*) 5 mg PO Q4H PRN PRN Reason: PAIN - MODERATE Trazodone HCl (Desyrel Tab*) 25 mg PO BEDTIME PRN PRN Reason: insomnia Vital Signs - 8 hr 10/06/18 10/06/18 10/06/18 07:39 07:44 08:00 Temperature 98.0 F Pulse Rate 79 Respiratory 18 18 18 Rate Blood Pressure 128/71 (mmHg) O2 Sat by Pulse 98 98 Oximetry 10/06/18 10/06/18 11:31 11:39 Temperature 98.3 F Pulse Rate 69 Respiratory 16 18 Rate Blood Pressure 136/58 (mmHg) O2 Sat by Pulse 97 Oximetry Oxygen Devices in Use Now: None Appearance: NAD Ears/Nose/Mouth/Throat: NL Teeth, Lips, Gums Neck: NL Appearance and Movements; NL JVP, Trachea Midline Respiratory: - - anteriorly clear to auscultation. Cardiovascular: NL Sounds; No Murmurs; No JVD, RRR Abdominal: NL Sounds; No Tenderness; No Distention, No Hepatosplenomegaly Extremities: No Edema, - - right knee in immobilizer Skin: - - slight ecchymosis right clavicle central 1/3rd with tenderness to palpation Neurological: Alert and Oriented x 3 Nutrition: Taking PO's Result Diagrams: 10/06/18 06:47 10/06/18 06:47 Additional Lab and Data: Laboratory Results - last 24 hr 10/05/18 10/05/18 10/06/18 13:22 17:21 06:47 Hgb 12.2 Hct 36 Plt Count 145 L MPV 8.8 Sodium 137 Potassium 3.7 Chloride 101 Carbon Dioxide 30 Anion Gap 6 BUN 22 Creatinine 1.39 H Est GFR ( Amer) 47.0 Est GFR (Non-Af Amer) 38.8 BUN/Creatinine Ratio 15.8 Glucose 150 H POC Glucose (mg/dL) 88 Calcium 9.2 Magnesium 1.7 L 10/06/18 10/06/18 10/06/18 06:47 08:20 11:35 Hgb Hct Plt Count MPV Sodium 136 Potassium 3.4 L Chloride 99 L Carbon Dioxide 31 Anion Gap 6 BUN 14 Creatinine 1.02 H Est GFR ( Amer) 67.1 Est GFR (Non-Af Amer) 55.5 BUN/Creatinine Ratio 13.7 Glucose 186 H POC Glucose (mg/dL) 209 H 206 H Calcium 9.3 Magnesium Assess/Plan/Problems-Billing Assessment: 58 yo female H NIDDM, HTN, HLD p/w with right tibial fracture repair 10/[address] Cortez. - Patient Problems (1) Diabetes mellitus Current Visit: Yes Status: Acute Code(s): E11.9 - TYPE 2 DIABETES MELLITUS WITHOUT COMPLICATIONS SNOMED Code(s): 62774239 Comment: continue SSI, resume metformin tomorrow. (2) HTN (hypertension) Current Visit: Yes Status: Acute Code(s): I10 - ESSENTIAL (PRIMARY) HYPERTENSION SNOMED Code(s): 25371248 Comment: continue losartan 75mg controlled. (3) Right tibial fracture Current Visit: Yes Status: Acute Code(s): S82.201A - UNSP FRACTURE OF SHAFT OF RIGHT TIBIA, INIT FOR CLOS FX SNOMED Code(s): 64225327 Comment: management per ortho. pain control, bowel regimen. touch down weight bearing for 2 months. PT (4) HLD (hyperlipidemia) Current Visit: Yes Status: Acute Code(s): E78.5 - HYPERLIPIDEMIA, UNSPECIFIED SNOMED Code(s): 39019573 Comment: continue atorvastatin 10mg (5) Obesity (BMI 30-39.9) Current Visit: Yes Status: Acute Code(s): E66.9 - OBESITY, UNSPECIFIED SNOMED Code(s): 481439520 (6) DVT prophylaxis Current Visit: Yes Status: Acute Code(s): SSL7441 - SNOMED Code(s): 642536042 Comment: lovenox 40mg daily for 30 days per ortho. (7) Pain of right clavicle Current Visit: Yes Status: Acute Code(s): M89.8X1 - OTHER SPECIFIED DISORDERS OF BONE, SHOULDER SNOMED Code(s): 513833830 Comment: management per ortho. Status and Disposition: ortho inpatient. medicine consulting.
[2018-10-06] MEDS: Aspirin 81 mg CHEW TAB* 81 MG TAB.CHEW PO SCH (20:40)
[2018-10-06] MEDS: Calcium Carbonate TAB* 1250 MG (CALCIUM 500 MG) PO SCH (20:40)
[2018-10-06] MEDS: Atorvastatin* 10 MG TAB PO SCH (20:40)
[2018-10-06] MEDS: Losartan TAB* 25 MG PO SCH (20:41)
[2018-10-06] MEDS: Cholecalciferol TAB* 1000 UNITS PO SCH (20:41)
[2018-10-07] MEDS: oxyCODONE TAB* 5 MG TAB PO PRN ×5 (01:01→21:54)
[2018-10-07] MEDS: Acetaminophen TAB* 325 MG PO SCH ×3 (04:40→20:44)
[2018-10-07 06:18] LABS: Mean Platelet Volume 8.5 fL (7.4-10.4); Platelet Count 164 10^3/ul (150-450)
[2018-10-07] MEDS: Docusate CAP* 100 MG PO SCH ×2 (08:31→20:45)
[2018-10-07] MEDS: Enoxaparin(*) 40 MG/0.4 ML SYR SUBCUT SCH (08:31)
[2018-10-07] MEDS: Insulin LISPRO* 1 UNITS UNIT SUBCUT SCH ×3 (09:04→17:28)
--- NOTE | 2018-10-07 09:04 | PN ---
Progress Note - Progress Note Date of Service: 10/07/18 SOAP: Subjective: POD #2 Right tibial plateau ORIF. Pt doing ok, pain controlled with meds. Pt hesitant with walker as she has some right shoulder pain, scared of falling again. Denies CP/SOB, f/c, n/v. Objective: Vitals: Temp Pulse Resp BP Pulse Ox 98.9 F 71 18 120/62 93 10/07/18 08:06 10/07/18 08:06 10/07/18 08:31 10/07/18 08:06 10/07/18 08:06 Gen: A&Ox3, NAD at rest RLE: Dressing C/D/I. +f/e at ankle and MTPs. N/V intact Labs: Laboratory Results - last 24 hr 10/06/1810/06/10/07/18 11:35 17:10 05:56 Plt Count 164 MPV 8.5 POC Glucose (mg/dL) 206 H 115 H 10/07/18 08:21 Plt Count MPV POC Glucose (mg/dL) 153 H Assessment: POD #2 Right tibial plateau ORIF Plan: Cont PT/OT, needs to work on stairs prior to d/c Pt unsure of dispo, may need AZUL Lovenox 40mg daily
--- NOTE | 2018-10-07 15:31 | PN ---
Subjective Interval History: Pain better controlled. Slept well. Quite an exertion to get to the bathroom this AM. right clavicle still sore. Had BM Denies fevers, chills, nausea, vomiting, abdominal pain, chest pain, SOB, cough. Objective Active Medications: Acetaminophen (Tylenol Tab*) 975 mg PO Q8H [facility] Last Admin: 10/07/18 13:12 Dose: 975 mg Aspirin (Aspirin 81 Mg Chew Tab*) 81 mg PO BEDTIME [facility] Last Admin: 10/06/18 20:40 Dose: 81 mg Atorvastatin Calcium (Lipitor*) 10 mg PO BEDTIME [facility] Last Admin: 10/06/18 20:40 Dose: 10 mg Calcium Carbonate (Calcium Carbonate Tab*) 1,250 mg PO BEDTIME [facility] Last Admin: 10/06/18 20:40 Dose: 1,250 mg Cholecalciferol (Vitamin D Tab*) 1,000 units PO BEDTIME [facility] Last Admin: 10/06/18 20:41 Dose: 1,000 units Dextrose (D50w Syringe 50 Ml*) 12.5 gm IV PUSH .FOR FS < 60 - SS PRN PRN Reason: FS < 60 Diphenhydramine HCl (Benadryl Iv*) 25 mg IV Q6H PRN PRN Reason: itching Docusate Sodium (Colace Cap*) 100 mg PO BID [facility] Last Admin: 10/07/18 08:31 Dose: 100 mg Enoxaparin Sodium (Lovenox(*)) 40 mg SUBCUT Q24H [facility] Last Admin: 10/07/18 08:31 Dose: 40 mg Lactated Ringer's (Lactated Ringers 1000 Ml Bag*) 1,000 mls @ 75 mls/hr IV PER RATE [facility] Last Admin: 10/05/18 13:56 Dose: 75 mls/hr Insulin Human Lispro (Humalog*) 0 units SUBCUT AC [facility]; Protocol Last Admin: 10/07/18 13:13 Dose: Not Given Losartan Potassium (Cozaar Tab*) 75 mg PO BEDTIME [facility] Last Admin: 10/06/18 20:41 Dose: 75 mg Metformin HCl (Glucophage*) 500 mg PO 1700 [facility] Ondansetron HCl (Zofran Tab*) 4 mg PO Q6H PRN PRN Reason: NAUSEA Oxycodone HCl (Roxycodone Tab*) 10 mg PO Q4H PRN PRN Reason: PAIN - SEVERE Last Admin: 10/07/18 01:01 Dose: 10 mg Oxycodone HCl (Roxycodone Tab*) 5 mg PO Q4H PRN PRN Reason: PAIN - MODERATE Last Admin: 10/07/18 13:16 Dose: 5 mg Trazodone HCl (Desyrel Tab*) 25 mg PO BEDTIME PRN PRN Reason: insomnia Vital Signs - 8 hr 10/07/18 10/07/18 10/07/18 08:00 08:06 08:31 Temperature 98.9 F Pulse Rate 71 Respiratory 18 18 18 Rate Blood Pressure 120/62 (mmHg) O2 Sat by Pulse 93 93 Oximetry 10/07/18 10/07/18 11:46 13:16 Temperature 98.5 F Pulse Rate 76 Respiratory 18 16 Rate Blood Pressure 115/46 (mmHg) O2 Sat by Pulse 97 Oximetry Oxygen Devices in Use Now: None Appearance: NAD Eyes: No Scleral Icterus, PERRLA Ears/Nose/Mouth/Throat: NL Teeth, Lips, Gums Respiratory: Symmetrical Chest Expansion and Respiratory Effort, - - anteriorly clear to auscultation Cardiovascular: NL Sounds; No Murmurs; No JVD, RRR Abdominal: NL Sounds; No Tenderness; No Distention Extremities: - - right knee immobilizer, wrap and cooling apparatus. good perfuion distally. Skin: - - ecchymosis right clavicle. Neurological: Alert and Oriented x 3 Nutrition: Taking PO's Result Diagrams: 10/07/18 05:56 10/06/18 06:47 Additional Lab and Data: Laboratory Results - last 24 hr 10/05/18 10/05/18 10/06/18 13:22 17:21 06:47 Hgb 12.2 Hct 36 Plt Count 145 L MPV 8.8 Sodium 137 Potassium 3.7 Chloride 101 Carbon Dioxide 30 Anion Gap 6 BUN 22 Creatinine 1.39 H Est GFR ( Amer) 47.0 Est GFR (Non-Af Amer) 38.8 BUN/Creatinine Ratio 15.8 Glucose 150 H POC Glucose (mg/dL) 88 Calcium 9.2 Magnesium 1.7 L 10/06/18 10/06/18 10/06/18 06:47 08:20 11:35 Hgb Hct Plt Count MPV Sodium 136 Potassium 3.4 L Chloride 99 L Carbon Dioxide 31 Anion Gap 6 BUN 14 Creatinine 1.02 H Est GFR ( Amer) 67.1 Est GFR (Non-Af Amer) 55.5 BUN/Creatinine Ratio 13.7 Glucose 186 H POC Glucose (mg/dL) 209 H 206 H Calcium 9.3 Magnesium Assess/Plan/Problems-Billing Assessment: 58 yo female PMH NIDDM, HTN, HLD p/w with right tibial fracture repair 10/[address] Cortez. - Patient Problems (1) Right tibial fracture Current Visit: Yes Status: Acute Code(s): S82.201A - UNSP FRACTURE OF SHAFT OF RIGHT TIBIA, INIT FOR CLOS FX SNOMED Code(s): 78433640 Comment: management per ortho. pain control, bowel regimen. touch down weight bearing for 2 months. PT, may need AZUL for short stay. (2) Diabetes mellitus Current Visit: Yes Status: Acute Code(s): E11.9 - TYPE 2 DIABETES MELLITUS WITHOUT COMPLICATIONS SNOMED Code(s): 84784166 Comment: continue SSI, resume metformin today. Good control (3) HTN (hypertension) Current Visit: Yes Status: Acute Code(s): I10 - ESSENTIAL (PRIMARY) HYPERTENSION SNOMED Code(s): 06689634 Comment: continue losartan 75mg controlled. (4) HLD (hyperlipidemia) Current Visit: Yes Status: Acute Code(s): E78.5 - HYPERLIPIDEMIA, UNSPECIFIED SNOMED Code(s): 68061615 Comment: continue atorvastatin 10mg (5) Obesity (BMI 30-39.9) Current Visit: Yes Status: Acute Code(s): E66.9 - OBESITY, UNSPECIFIED SNOMED Code(s): 802984782 (6) DVT prophylaxis Current Visit: Yes Status: Acute Code(s): FXF1832 - SNOMED Code(s): 170012504 Comment: lovenox 40mg daily for 30 days per ortho. (7) Pain of right clavicle Current Visit: Yes Status: Acute Code(s): M89.8X1 - OTHER SPECIFIED DISORDERS OF BONE, SHOULDER SNOMED Code(s): 939215205 Comment: management per ortho. Status and Disposition: ortho inpatient. medicine consulting.
[2018-10-07] MEDS: metFORMIN* 500 MG TAB PO SCH (17:27)
[2018-10-07] MEDS: Losartan TAB* 25 MG PO SCH (20:44)
[2018-10-07] MEDS: Calcium Carbonate TAB* 1250 MG (CALCIUM 500 MG) PO SCH (20:45)
[2018-10-07] MEDS: Cholecalciferol TAB* 1000 UNITS PO SCH (20:46)
[2018-10-07] MEDS: Aspirin 81 mg CHEW TAB* 81 MG TAB.CHEW PO SCH (20:46)
[2018-10-07] MEDS: Atorvastatin* 10 MG TAB PO SCH (20:46)
[2018-10-08] MEDS: Acetaminophen TAB* 325 MG PO SCH ×3 (04:01→20:41)
[2018-10-08 06:45] LABS: Platelet Count 172 10^3/ul (150-450)
--- NOTE | 2018-10-08 07:57 | PN ---
Progress Note - Progress Note Date of Service: 10/08/18 SOAP: Subjective: POD #3 Right tibial plateau ORIF, doing well. Pain controlled. Denies CP/SOB, f/ c, n/v. Was able to ambulate to bathroom yesterday but limited by right shoulder pain. Objective: Vitals: Temp Pulse Resp BP Pulse Ox 98.4 F 67 16 113/60 96 02 07:32 10/08/18 07:32 10/08/18 07:32 10/08/18 07:32 10/08/18 07:32 Gen: A&Ox3, NAD at rest laying in bed RLE: Incision C/D/I with breanne in place. Mild edema and ecchymosis to knee, no edema to lower leg and foot. +f/e at ankle and MTPs, N/V intact Assessment: POD #3 Right tibial plateau ORIF Plan: PMRU referral placed, vs AZUL on d/c Pt does not feel that she can go home at this point Cont PT/OT - may unlock brace for ROM Lovenox for DVT ppx
[2018-10-08] MEDS: oxyCODONE TAB* 5 MG TAB PO PRN ×3 (07:58→17:30)
[2018-10-08] MEDS: Insulin LISPRO* 1 UNITS UNIT SUBCUT SCH ×3 (08:19→17:36)
[2018-10-08] MEDS: Enoxaparin(*) 40 MG/0.4 ML SYR SUBCUT SCH (08:19)
[2018-10-08] MEDS: Docusate CAP* 100 MG PO SCH ×2 (08:19→20:42)
[2018-10-08] MEDS: metFORMIN* 500 MG TAB PO SCH (17:30)
[2018-10-08] MEDS: Atorvastatin* 10 MG TAB PO SCH (20:42)
[2018-10-08] MEDS: Aspirin 81 mg CHEW TAB* 81 MG TAB.CHEW PO SCH (20:42)
[2018-10-08] MEDS: Cholecalciferol TAB* 1000 UNITS PO SCH (20:42)
[2018-10-08] MEDS: Calcium Carbonate TAB* 1250 MG (CALCIUM 500 MG) PO SCH (20:43)
[2018-10-08] MEDS: Losartan TAB* 25 MG PO SCH (20:43)
[2018-10-09] MEDS: oxyCODONE TAB* 5 MG TAB PO PRN ×4 (03:56→21:22)
[2018-10-09] MEDS: Acetaminophen TAB* 325 MG PO SCH ×3 (03:57→21:17)
[2018-10-09 05:17] LABS: Mean Platelet Volume 8.8 fL (7.4-10.4); Platelet Count 193 10^3/ul (150-450)
[2018-10-09] MEDS: Insulin LISPRO* 1 UNITS UNIT SUBCUT SCH ×3 (08:45→17:20)
[2018-10-09] MEDS: Docusate CAP* 100 MG PO SCH ×2 (08:45→21:18)
[2018-10-09] MEDS: Enoxaparin(*) 40 MG/0.4 ML SYR SUBCUT SCH (08:45)
--- NOTE | 2018-10-09 14:53 | PN ---
Progress Note - Progress Note Date of Service: 10/09/18 SOAP: Subjective: POD #4 Right tibial plateau ORIF, doing well. Pain controlled. Denies CP/SOB, f/ c, n/v. Was able to ambulate to bathroom twice today but still limited by right shoulder pain. Objective: Vitals: Temp Pulse Resp BP Pulse Ox 97.6 F 76 20 149/58 99 10/09/18 11:22 10/09/18 11:22 10/09/18 12:35 10/09/18 11:22 10/09/18 11:22 Gen: A&Ox3, NAD at rest laying in bed RLE: Dressing C/D/I. +f/e at ankle and MTPs, N/V intact Assessment: POD #4 Right tibial plateau ORIF Plan: PMRU accepted pt pending insurance. Case management working with Worker's Comp to obtain approval Cont PT/OT - january unlock brace for ROM Lovenox for DVT ppx
[2018-10-09] MEDS: metFORMIN* 500 MG TAB PO SCH (17:21)
[2018-10-09] MEDS: Losartan TAB* 25 MG PO SCH (21:18)
[2018-10-09] MEDS: Atorvastatin* 10 MG TAB PO SCH (21:18)
[2018-10-09] MEDS: Aspirin 81 mg CHEW TAB* 81 MG TAB.CHEW PO SCH (21:18)
[2018-10-09] MEDS: Calcium Carbonate TAB* 1250 MG (CALCIUM 500 MG) PO SCH (21:18)
[2018-10-09] MEDS: Cholecalciferol TAB* 1000 UNITS PO SCH (21:18)
[2018-10-10] MEDS: oxyCODONE TAB* 5 MG TAB PO PRN ×3 (01:38→21:30)
[2018-10-10] MEDS: Acetaminophen TAB* 325 MG PO SCH ×3 (04:48→20:20)
[2018-10-10 06:28] LABS: Mean Platelet Volume 8.8 fL (7.4-10.4); Platelet Count 219 10^3/ul (150-450)
[2018-10-10] MEDS: Enoxaparin(*) 40 MG/0.4 ML SYR SUBCUT SCH (08:21)
[2018-10-10] MEDS: Insulin LISPRO* 1 UNITS UNIT SUBCUT SCH ×3 (08:21→17:24)
[2018-10-10] MEDS: Docusate CAP* 100 MG PO SCH ×2 (08:21→21:30)
--- NOTE | 2018-10-10 16:13 | PN ---
Progress Note - Progress Note Date of Service: 10/10/18 SOAP: Subjective: []Pt seen and examined at bedside. She feels well without CP, SOB, dizziness, nausea. RLE pain is well controlled. Objective: []Gen: A&Ox3, NAD at rest laying in bed RLE: Dressing C/D/I. +f/e at ankle and MTPs, DP2+, sensation intact to light touch distally. Calves supple and nontender without erythema, edema or palpable cords Assessment: S/P Right tibial plateau ORIF Plan: NWB RLE PMRU accepted pt pending insurance. Case management working with Worker's Comp to obtain approval Cont PT/OT - may unlock brace for ROM Lovenox 40 mg sq qd x 30 days post op for DVT ppx Vital Signs Temp 97.8 F 10/10/18 12:00 Pulse 77 10/10/18 12:00 Resp 16 10/10/18 12:00 BP 148/72 10/10/18 12:00 Pulse Ox 100 10/10/18 12:00 Intake & Output 10/09/18 10/10/18 10/10/18 18:59 06:59 18:59 Intake Total 820 860 200 Output Total 600 400 400 Balance 220 460 -200 Intake: Oral 820 860 200 Output: Urine 600 400 400 Other: Estimated Stool Amount Medium Laboratory Last Values Hgb 12.2 g/dl (12.0-16.0) 10/06/18 06:47 Hct 36 % (35-47) 10/06/18 06:47 Plt Count 219 10^3/ul (150-450) 10/10/18 05:40 MPV 8.8 fL (7.4-10.4) 10/10/18 05:40 Sodium 136 mmol/L (135-145) 10/06/18 06:47 Potassium 3.4 mmol/L (3.5-5.0) L 10/06/18 06:47 Chloride 99 mmol/L (101-111) L 10/06/18 06:47 Carbon Dioxide 31 mmol/L (22-32) 10/06/18 06:47 Anion Gap 6 mmol/L (2-11) 10/06/18 06:47 BUN 14 mg/dL (6-24) 10/06/18 06:47 Creatinine 1.02 mg/dL (0.51-0.95) H 10/06/18 06:47 Est GFR ( Amer) 67.1 (>60) 10/06/18 06:47 Est GFR (Non-Af Amer) 55.5 (>60) 10/06/18 06:47 BUN/Creatinine Ratio 13.7 (8-20) 10/06/18 06:47 Glucose 186 mg/dL (70-100) H 10/06/18 06:47 POC Glucose (mg/dL) 133 mg/dL (70-100) H 10/10/18 11:56 Calcium 9.3 mg/dL (8.6-10.3) 10/06/18 06:47 Magnesium 1.7 mg/dL (1.9-2.7) L 10/05/18 13:22
[2018-10-10] MEDS: metFORMIN* 500 MG TAB PO SCH (17:24)
[2018-10-10] MEDS: Aspirin 81 mg CHEW TAB* 81 MG TAB.CHEW PO SCH (21:28)
[2018-10-10] MEDS: Losartan TAB* 25 MG PO SCH (21:29)
[2018-10-10] MEDS: Calcium Carbonate TAB* 1250 MG (CALCIUM 500 MG) PO SCH (21:29)
[2018-10-10] MEDS: Atorvastatin* 10 MG TAB PO SCH (21:29)
[2018-10-10] MEDS: Cholecalciferol TAB* 1000 UNITS PO SCH (21:29)
[2018-10-11] MEDS: Acetaminophen TAB* 325 MG PO SCH ×3 (03:45→19:57)
[2018-10-11] MEDS: Docusate CAP* 100 MG PO SCH ×2 (08:16→20:57)
[2018-10-11] MEDS: Enoxaparin(*) 40 MG/0.4 ML SYR SUBCUT SCH (08:17)
[2018-10-11] MEDS: Insulin LISPRO* 1 UNITS UNIT SUBCUT SCH ×3 (08:54→16:54)
[2018-10-11 08:55] LABS: Hematocrit 38 % (35-47); Hemoglobin 12.7 g/dl (12.0-16.0)
[2018-10-11] MEDS: metFORMIN* 500 MG TAB PO SCH (17:31)
[2018-10-11] MEDS: Cholecalciferol TAB* 1000 UNITS PO SCH (20:55)
[2018-10-11] MEDS: Losartan TAB* 25 MG PO SCH (20:55)
[2018-10-11] MEDS: Calcium Carbonate TAB* 1250 MG (CALCIUM 500 MG) PO SCH (20:55)
[2018-10-11] MEDS: oxyCODONE TAB* 5 MG TAB PO PRN (20:55)
[2018-10-11] MEDS: Atorvastatin* 10 MG TAB PO SCH (20:55)
[2018-10-11] MEDS: Aspirin 81 mg CHEW TAB* 81 MG TAB.CHEW PO SCH (20:55)
[2018-10-12] MEDS: Acetaminophen TAB* 325 MG PO SCH ×3 (03:44→19:48)
--- NOTE | 2018-10-12 08:21 | PN ---
Progress Note - Progress Note Date of Service: 10/12/18 SOAP: Subjective: []Pt seen at bedside. She feels well, no RLE pain, CP, SOB, dizziness, nausea. Objective: [] Gen: NAD at rest laying in bed RLE: Dressing changed, incision C/D/I. +f/e at ankle and MTPs, DP2+, sensation intact to light touch distally. Calves supple and nontender without erythema, edema or palpable cords Assessment: S/P Right tibial plateau ORIF Plan: NWB RLE PMRU accepted pt pending insurance. Case management working with Worker's Comp to obtain approval Cont PT/OT - january unlock brace for ROM Lovenox 40 mg sq qd x 30 days post op for DVT ppx Vital Signs Temp 98.0 F 10/12/18 03:18 Pulse 70 10/12/18 03:18 Resp 16 10/12/18 03:18 BP 110/52 10/12/18 03:18 Pulse Ox 96 10/12/18 03:18 Intake & Output 10/11/18 10/12/18 10/12/18 18:59 06:59 18:59 Intake Total 220 1140 Output Total 300 800 Balance -80 340 Intake: Oral 220 1140 Output: Urine 300 800 Other: # Bowel Movements 0 Laboratory Last Values Hgb 12.7 g/dl (12.0-16.0) 10/11/18 08:44 Hct 38 % (35-47) 10/11/18 08:44 Plt Count 219 10^3/ul (150-450) 10/10/18 05:40 MPV 8.8 fL (7.4-10.4) 10/10/18 05:40 Sodium 136 mmol/L (135-145) 10/06/18 06:47 Potassium 4.0 mmol/L (3.5-5.0) 10/11/18 08:44 Chloride 99 mmol/L (101-111) L 10/06/18 06:47 Carbon Dioxide 31 mmol/L (22-32) 10/06/18 06:47 Anion Gap 6 mmol/L (2-11) 10/06/18 06:47 BUN 14 mg/dL (6-24) 10/06/18 06:47 Creatinine 1.02 mg/dL (0.51-0.95) H 10/06/18 06:47 Est GFR ( Amer) 67.1 (>60) 10/06/18 06:47 Est GFR (Non-Af Amer) 55.5 (>60) 10/06/18 06:47 BUN/Creatinine Ratio 13.7 (8-20) 10/06/18 06:47 Glucose 186 mg/dL (70-100) H 10/06/18 06:47 POC Glucose (mg/dL) 121 mg/dL (70-100) H 10/11/18 16:45 Calcium 9.3 mg/dL (8.6-10.3) 10/06/18 06:47 Magnesium 1.7 mg/dL (1.9-2.7) L 10/05/18 13:22
[2018-10-12] MEDS: Insulin LISPRO* 1 UNITS UNIT SUBCUT SCH ×3 (08:35→17:13)
[2018-10-12] MEDS: Enoxaparin(*) 40 MG/0.4 ML SYR SUBCUT SCH (09:10)
[2018-10-12] MEDS: Docusate CAP* 100 MG PO SCH ×2 (09:11→20:45)
--- NOTE | 2018-10-12 14:05 | PN ---
Progress Note - Progress Note Date of Service: 10/12/18 SOAP: Subjective: []Pt seen at bedside today 10/12 . She feels well, no RLE pain, CP, SOB, dizziness , nausea. Objective: [] Gen: NAD, well appearing RLE: Dressing C/D/I. +f/e at ankle and MTPs, DP2+, sensation intact to light touch distally. Calves supple and nontender without erythema, edema or palpable cords Assessment: S/P Right tibial plateau ORIF Plan: NWB RLE PMRU accepted pt pending insurance. Case management working with Worker's Comp to obtain approval. Discussed option of patient going home with patient, PT and CM. It is felt that she is still unable to ambulate the stairs at her home safely enough to DC directly to home. Cont PT/OT - may unlock brace for ROM Lovenox 40 mg sq qd x 30 days post op for DVT ppx Low Mg- discussed with medicine. Will provide oral replacement Vital Signs Temp 98.0 F 10/12/18 03:18 Pulse 70 10/12/18 03:18 Resp 14 10/12/18 08:00 BP 110/52 10/12/18 03:18 Pulse Ox 96 10/12/18 03:18 Intake & Output 10/11/18 10/12/18 10/12/18 18:59 06:59 18:59 Intake Total 220 1140 Output Total 300 800 Balance -80 340 Intake: Oral 220 1140 Output: Urine 300 800 Other: Estimated Void Medium Date of Last Bowel 10/12/18 Movement # Bowel Movements 0 1 Estimated Stool Amount Medium # Voids 1 Laboratory Last Values Hgb 12.7 g/dl (12.0-16.0) 10/11/18 08:44 Hct 38 % (35-47) 10/11/18 08:44 Plt Count 219 10^3/ul (150-450) 10/10/18 05:40 MPV 8.8 fL (7.4-10.4) 10/10/18 05:40 Sodium 136 mmol/L (135-145) 10/06/18 06:47 Potassium 4.0 mmol/L (3.5-5.0) 10/11/18 08:44 Chloride 99 mmol/L (101-111) L 10/06/18 06:47 Carbon Dioxide 31 mmol/L (22-32) 10/06/18 06:47 Anion Gap 6 mmol/L (2-11) 10/06/18 06:47 BUN 14 mg/dL (6-24) 10/06/18 06:47 Creatinine 1.02 mg/dL (0.51-0.95) H 10/06/18 06:47 Est GFR ( Amer) 67.1 (>60) 10/06/18 06:47 Est GFR (Non-Af Amer) 55.5 (>60) 10/06/18 06:47 BUN/Creatinine Ratio 13.7 (8-20) 10/06/18 06:47 Glucose 186 mg/dL (70-100) H 10/06/18 06:47 POC Glucose (mg/dL) 128 mg/dL (70-100) H 10/12/18 11:56 Calcium 9.3 mg/dL (8.6-10.3) 10/06/18 06:47 Magnesium 1.8 mg/dL (1.9-2.7) L 10/12/18 09:25
[2018-10-12] MEDS: metFORMIN* 500 MG TAB PO SCH (17:13)
[2018-10-12] MEDS: Cholecalciferol TAB* 1000 UNITS PO SCH (20:43)
[2018-10-12] MEDS: Losartan TAB* 25 MG PO SCH (20:43)
[2018-10-12] MEDS: Atorvastatin* 10 MG TAB PO SCH (20:43)
[2018-10-12] MEDS: Aspirin 81 mg CHEW TAB* 81 MG TAB.CHEW PO SCH (20:43)
[2018-10-12] MEDS: Calcium Carbonate TAB* 1250 MG (CALCIUM 500 MG) PO SCH (20:43)
[2018-10-13] MEDS: Acetaminophen TAB* 325 MG PO SCH ×2 (03:24→12:06)
[2018-10-13] MEDS: Enoxaparin(*) 40 MG/0.4 ML SYR SUBCUT SCH (08:13)
[2018-10-13] MEDS: Docusate CAP* 100 MG PO SCH ×2 (08:13→08:16)
[2018-10-13 08:14] VITALS: BP 120/55
[2018-10-13] MEDS ORDERED: Magnesium Oxide TAB* 400 MG PO SCH (09:00)
[2018-10-13] MEDS: Insulin LISPRO* 1 UNITS UNIT SUBCUT SCH ×2 (09:28→11:54)
== END 2018-10-13 15:00 | DRG 313 ==
LOC: AA 05:42 → INTOOBSV 05:42 → SSU 11:11 → AA 16:03 → EDSTATUS 16:15 → OBSVTOIN 10-06 16:03
PROVIDERS: ADMIT Orthopaedic Surgery; ATTEND Orthopaedic Surgery
PROC: 0QSG04Z Reposition Right Tibia with Internal Fixation Device, Open Approach (ICD-10-PCS; principal; 2018-10-05 07:30)
DX: S82.141A Displaced bicondylar fracture of right tibia, initial encounter for closed fracture (principal); I10 Essential (primary) hypertension; M19.90 Unspecified osteoarthritis, unspecified site; N20.0 Calculus of kidney; E11.51 Type 2 diabetes mellitus with diabetic peripheral angiopathy without gangrene; W20.8XXA Other cause of strike by thrown, projected or falling object, initial encounter; I73.9 Peripheral vascular disease, unspecified; M89.8X8 Other specified disorders of bone, other site; M81.0 Age-related osteoporosis without current pathological fracture; E66.9 Obesity, unspecified; E83.42 Hypomagnesemia; G89.29 Other chronic pain; M54.5 Low back pain; Z98.42 Cataract extraction status, left eye; Z98.41 Cataract extraction status, right eye; Z88.0 Allergy status to penicillin; Z80.9 Family history of malignant neoplasm, unspecified; Z80.0 Family history of malignant neoplasm of digestive organs; Z83.3 Family history of diabetes mellitus; Z82.49 Family history of ischemic heart disease and other diseases of the circulatory system; Y92.009 Unspecified place in unspecified non-institutional (private) residence as the place of occurrence of the external cause; Z68.39 Body mass index [BMI] 39.0-39.9, adult
CPT/HCPCS: 36415; 76000; 80048; 83735; 84132; 85014; 85018; 85049; 93005; 97530; A9270-GY; C1713; C1776; J1650; J2250; J2405; J2704; J2765; J2795; J3010; J3475

== ENCOUNTER 2018-10-13 12:06 | Inpatient (IN) | payer OTHER ==
[2018-10-13] MEDS ORDERED: Senna TAB PO PRN (16:46)
[2018-10-13] MEDS ORDERED: Magnesium Hydroxide LIQ* 30 ML UDC PO PRN (16:46)
[2018-10-13] MEDS ORDERED: Dextrose 50% Syringe 50 ML* 25 GM/50 ML SYRINGE IV PUSH PRN (16:55)
[2018-10-13] MEDS: Insulin LISPRO* 1 UNITS UNIT SUBCUT SCH ×2 (17:17→21:49)
[2018-10-13] MEDS: Atorvastatin* 10 MG TAB PO SCH (17:18)
[2018-10-13] MEDS: metFORMIN* 500 MG TAB PO SCH (17:18)
--- NOTE | 2018-10-13 19:45 | HP ---
ADMISSION HISTORY AND PHYSICAL: DATE OF ADMISSION: 10/13/18 REASON FOR ADMISSION: Right tibia fracture. HISTORY OF PRESENT ILLNESS: Noelle Neal is a 58-year-old female. On 09/28/18 , she was working at the [employer]. 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 Apparently, the patient slipped and fell on the kitchen floor and her knee hit in the tile floor of the kitchen. She had immediate pain in her right knee. She was barely able to get up, but she was able to get up on her own and then called her supervisor coremaker. Her supervisor coremaker and the school nurse came and got her with a wheelchair and she was brought to the emergency room at [facility] that day. She had an x-ray done that showed a displaced right lateral tibial plateau fracture with a right knee hemarthrosis. The patient saw Dr. Cortez in followup on 10/02/18. He ordered a CAT scan of her leg, which was done 10/04/18. It showed a comminuted fracture of the lateral tibial plateau with again noting the hemarthrosis. It was decided that surgical repair would be the patient's best option. She was admitted to [facility] 10/05/18. She underwent an open reduction internal fixation of the right tibial plateau fracture. Postop, she was made touchdown weightbearing and put in a [place] brace. She was put on Lovenox for DVT prophylaxis. She felt to have physical therapy and occupational therapy needs. She is now being admitted for inpatient rehab so she might return to independent living. PAST MEDICAL HISTORY: Significant for diabetes mellitus, hypertension. MEDICATIONS: Current medications include: 1. Aspirin. 2. Atorvastatin in place for usual lovastatin. 3. She is on Lovenox for DVT prophylaxis. 4. Humalog insulin coverage. 5. Cozaar. 6. Glucophage. 7. Baby aspirin. ALLERGIES: The patient has allergies to AMOXICILLIN. SOCIAL HISTORY: She is a nonsmoker, nondrinker, lives with her in a 1- story house with 3 steps to enter. Her aunt also lives with her. She was working as mentioned for the [employer]. REVIEW OF SYSTEMS: The patient reports no current shortness of breath or chest pain. PHYSICAL EXAMINATION VITAL SIGNS: On physical exam, the patient's temperature is 98.5, blood pressure is 125/77, pulse 77, respirations 20. HEENT: Her extraocular movements are intact. Tongue is midline. NECK: Supple. LUNGS: Sound clear to auscultation bilaterally. HEART: Sounds are regular. S1 and S2 are audible. ABDOMEN: Soft and nontender. EXTREMITIES: Her right knee is in a [place] brace. It is wrapped. She is able to dorsiflex and plantar flex the right foot. Trace edema is noted in the right foot. Peripheral pulses are intact. NEUROLOGIC: She is awake, alert, and oriented. Muscle strength appears to be 5 /5. The right leg was difficult to test because of the recent surgery and the [place] brace. She can dorsiflex and plantar flex with at least 4/5 strength. FUNCTIONAL EXAM: She transfers with contact guard to min assist. ASSESSMENT: Right tibial plateau fracture, status post open reduction and internal fixation of the same. PLAN: We are going to integrate her into a comprehensive and therapeutic rehab program with the following goals: 1. Physical Therapy will work with the patient. They are going to work on functional transfer training, ambulation training with a walker. 2. Occupational Therapy will see the patient and work on her activities of daily living including toileting and toilet transfers. 3. Lovenox for DVT prophylaxis. 4. Adequate analgesia. Right now, she is getting by with Tylenol. 5. Her bowels will be regulated. 6. business services clerk will be closely involved to make sure that any services and equipment that the patient requires are in place prior to discharge. 7. For her diabetes, we will continue the metformin. We will put her on fingersticks with appropriate sliding scale insulin coverage. 8. Family training as appropriate. 9. Continue Cozaar for hypertension. 10. Home with appropriate services. ESTIMATED LENGTH OF STAY: Seven to 10 days. [id number]/CPS #: [id number] [facility] CENTERJermaine
[2018-10-13] MEDS: Acetaminophen TAB* 325 MG PO PRN (21:17)
[2018-10-13] MEDS: Losartan TAB* 25 MG PO SCH (21:17)
[2018-10-13] MEDS: Docusate CAP* 100 MG PO SCH (21:17)
[2018-10-13] MEDS: Aspirin 81 mg CHEW TAB* 81 MG TAB.CHEW PO SCH (21:20)
[2018-10-14] MEDS: Acetaminophen TAB* 325 MG PO PRN ×3 (04:46→20:03)
[2018-10-14 04:57] LABS: ABS Basophils 0.1 10^3/ul (0-0.2); ABS Eosinophils 0.3 10^3/ul (0-0.6); ABS Lymphocytes 2.2 10^3/ul (1.0-4.8); ABS Monocytes 0.4 10^3/ul (0-0.8); ABS Neutrophils 4.1 10^3/ul (1.5-7.7); ABS Nucleated RBC 0 10^3/ul; Eosinophil % 4.2 %; Hematocrit 35 % (35-47); Hemoglobin 11.5 g/dl (12.0-16.0); Lymphocyte % 31.5 %; Mean Corpuscular HGB Conc 33 g/dl (31-36); Mean Corpuscular Hemoglobin 32 pg (27-31); Mean Corpuscular Volume 96 fL (80-97); Mean Platelet Volume 8.5 fL (7.4-10.4); Nucleated Red Blood Cells % 0; Platelet Count 292 10^3/ul (150-450); Red Blood Count 3.59 10^6/ul (4.00-5.40); Red Cell Distribution Width 13 % (10.5-15)
[2018-10-14 07:36] LABS: EGFR African American 100.3 (>60); EGFR Non-African American 82.9 (>60)
[2018-10-14] MEDS: Insulin LISPRO* 1 UNITS UNIT SUBCUT SCH ×4 (08:57→21:17)
[2018-10-14] MEDS: Enoxaparin(*) 40 MG/0.4 ML SYR SUBCUT SCH (08:57)
[2018-10-14] MEDS: Docusate CAP* 100 MG PO SCH ×2 (08:57→21:19)
[2018-10-14] MEDS: metFORMIN* 500 MG TAB PO SCH (17:23)
[2018-10-14] MEDS: Atorvastatin* 10 MG TAB PO SCH (17:23)
--- NOTE | 2018-10-14 17:33 | PN ---
Progress Note Date of Service: 10/14/18 Note: SERGE BONILLA was visited. Therapy notes read and reviewed. She is doing pretty well. She notes that the bottom of her brace is digging into her ankle. Will need to have Hanar look at brace on Tuesday. Pain controlled with tylenol Current Medications: Active Medications Generic Name Dose Route Start Last Admin Trade Name Freq PRN Reason Stop Dose Admin Acetaminophen 975 mg 10/13/18 20:08 10/14/18 13:14 Tylenol Tab* PO 975 mg Q6H PRN Administration PAIN - MODERATE Aspirin 81 mg 10/13/18 21:00 10/13/18 21:20 Aspirin 81 Mg Chew Tab* PO 81 mg 2100 MARILYN Administration Atorvastatin Calcium 10 mg 10/13/18 17:00 10/14/18 17:23 Lipitor* PO 10 mg 1700 MARILYN Administration Dextrose 12.5 gm 10/13/18 16:55 D50w Syringe 50 Ml* IV PUSH .FOR FS < 60 - SS PRN FS < 60 Docusate Sodium 100 mg 10/13/18 21:00 10/14/18 08:57 Colace Cap* PO Not Given BID MARILYN Enoxaparin Sodium 40 mg 10/14/18 09:00 10/14/18 08:57 Lovenox(*) SUBCUT 40 mg Q24H MARILYN Administration Insulin Human Lispro 0 - 10 units 10/13/18 17:00 10/14/18 16:51 Humalog* SUBCUT Not Given ACHS MARILYN Protocol Losartan Potassium 75 mg 10/13/18 21:00 10/13/18 21:17 Cozaar Tab* PO 75 mg 2100 MARILYN Administration Magnesium Hydroxide 30 ml 10/13/18 16:46 Milk Of Magnesia Liq* PO Q6H PRN CONSTIPATION Metformin HCl 500 mg 10/13/18 17:00 10/14/18 17:23 Glucophage* PO 500 mg 1700 MARILYN Administration Senna 2 tab 10/13/18 16:46 Senokot Tab* PO BEDTIME PRN CONSTIPATION Vital Signs: Vital Signs Temp Pulse Resp BP Pulse Ox 98.3 F 76 16 131/56 99 10/14/18 15:39 10/14/18 15:39 10/14/18 15:39 10/14/18 15:39 10/14/18 15:39 Lab Results: Laboratory Results - last 24 hr 10/13/18 10/13/18 10/13/18 20:49 20:53 21:24 WBC RBC Hgb Hct MCV MCH MCHC RDW Plt Count MPV Neut % (Auto) Lymph % (Auto) [place] % (Auto) Eos % (Auto) Baso % (Auto) Absolute Neuts (auto) Absolute Lymphs (auto) Absolute Monos (auto) Absolute Eos (auto) Absolute Basos (auto) Absolute Nucleated RBC Nucleated RBC % BUN Creatinine Est GFR ( Amer) Est GFR (Non-Af Amer) Glucose 120 H POC Glucose (mg/dL) 48 L 120 H 10/14/18 10/14/18 10/14/18 04:39 04:40 07:42 WBC 7.0 RBC 3.59 L Hgb 11.5 L Hct 35 MCV 96 MCH 32 H MCHC 33 RDW 13 Plt Count 292 MPV 8.5 Neut % (Auto) 58.1 Lymph % (Auto) 31.5 [place] % (Auto) 5.4 Eos % (Auto) 4.2 Baso % (Auto) 0.8 Absolute Neuts (auto) 4.1 Absolute Lymphs (auto) 2.2 Absolute Monos (auto) 0.4 Absolute Eos (auto) 0.3 Absolute Basos (auto) 0.1 Absolute Nucleated RBC 0 Nucleated RBC % 0 BUN 12 Creatinine 0.72 Est GFR ( Amer) 100.3 Est GFR (Non-Af Amer) 82.9 Glucose POC Glucose (mg/dL) 123 H 10/14/18 10/14/18 12:15 16:49 WBC RBC Hgb Hct MCV MCH MCHC RDW Plt Count MPV Neut % (Auto) Lymph % (Auto) [place] % (Auto) Eos % (Auto) Baso % (Auto) Absolute Neuts (auto) Absolute Lymphs (auto) Absolute Monos (auto) Absolute Eos (auto) Absolute Basos (auto) Absolute Nucleated RBC Nucleated RBC % BUN Creatinine Est GFR ( Amer) Est GFR (Non-Af Amer) Glucose POC Glucose (mg/dL) 101 H 117 H Exam: HEENT: EOMI LUNGS: CLear bilaterally HEART: Reg rhythm ABDOMEN: Soft EXTREMITIES: RLE in hinged knee brace. Skin over ankle red NEUROLOGIC: A&O. Moves all 4 extremities. Assessment/Plan: 1. Right comminuted tibial plateau fracture, S/P ORIF: NWB RLE. PT/OT. Will ask gasser machine operator to look at brace 2. DM: Metformin/SSI 3. Analgesia: Tylenol 4. HTN: Cozaar 5. DVT Prophylaxis: Lovenox 6. Advanced Directives: Full code 10/14/18 17:33 10/14/18 17:35
[2018-10-14] MEDS: Aspirin 81 mg CHEW TAB* 81 MG TAB.CHEW PO SCH (21:20)
[2018-10-14] MEDS: Losartan TAB* 25 MG PO SCH (21:20)
[2018-10-15] MEDS: Insulin LISPRO* 1 UNITS UNIT SUBCUT SCH ×4 (08:20→20:21)
[2018-10-15] MEDS: Docusate CAP* 100 MG PO SCH ×2 (08:29→20:21)
[2018-10-15] MEDS: Enoxaparin(*) 40 MG/0.4 ML SYR SUBCUT SCH (08:29)
[2018-10-15] MEDS: Acetaminophen TAB* 325 MG PO PRN (10:10)
--- NOTE | 2018-10-15 14:10 | PN ---
Progress Note Date of Service: 10/15/18 Note: SERGE BONILLA was visited. Nursing notes read and reviewed. Bottom of knee brace hurts. To call [place] Knitter in am Current Medications: Active Medications Generic Name Dose Route Start Last Admin Trade Name Freq PRN Reason Stop Dose Admin Acetaminophen 975 mg 10/13/18 20:08 10/15/18 10:10 Tylenol Tab* PO 975 mg Q6H PRN Administration PAIN - MODERATE Aspirin 81 mg 10/13/18 21:00 10/14/18 21:20 Aspirin 81 Mg Chew Tab* PO 81 mg 2100 MARILYN Administration Atorvastatin Calcium 10 mg 10/13/18 17:00 10/14/18 17:23 Lipitor* PO 10 mg 1700 MARILYN Administration Dextrose 12.5 gm 10/13/18 16:55 D50w Syringe 50 Ml* IV PUSH .FOR FS < 60 - SS PRN FS < 60 Docusate Sodium 100 mg 10/13/18 21:00 10/15/18 08:29 Colace Cap* PO 100 mg BID MARILYN Administration Enoxaparin Sodium 40 mg 10/14/18 09:00 10/15/18 08:29 Lovenox(*) SUBCUT 40 mg Q24H MARILYN Administration Insulin Human Lispro 0 - 10 units 10/13/18 17:00 10/15/18 11:56 Humalog* SUBCUT Not Given [facility] Protocol Losartan Potassium 75 mg 10/13/18 21:00 10/14/18 21:20 Cozaar Tab* PO 75 mg 2100 MARILYN Administration Magnesium Hydroxide 30 ml 10/13/18 16:46 Milk Of Magnesia Liq* PO Q6H PRN CONSTIPATION Metformin HCl 500 mg 10/13/18 17:00 10/14/18 17:23 Glucophage* PO 500 mg 1700 MARILYN Administration Senna 2 tab 10/13/18 16:46 Senokot Tab* PO BEDTIME PRN CONSTIPATION Vital Signs: Vital Signs Temp Pulse Resp BP Pulse Ox 97.9 F 75 18 119/58 98 10/15/18 05:44 10/15/18 05:44 10/15/18 08:00 10/15/18 05:44 10/15/18 08:00 Lab Results: Laboratory Results - last 24 hr 10/14/18 10/14/18 10/15/18 16:49 21:15 07:59 POC Glucose (mg/dL) 117 H 128 H 122 H 10/15/18 11:51 POC Glucose (mg/dL) 99 Exam: HEENT: EOMI LUNGS: CLear bilaterally HEART: Reg rhythm ABDOMEN: Soft EXTREMITIES: RLE in hinged knee brace. Skin over ankle red NEUROLOGIC: A&O. Moves all 4 extremities. Assessment/Plan: 1. Right comminuted tibial plateau fracture, S/P ORIF: NWB RLE. PT/OT. Will ask hazardous waste remover to look at brace 2. DM: Metformin/SSI 3. Analgesia: Tylenol 4. HTN: Cozaar 5. DVT Prophylaxis: Lovenox 6. Advanced Directives: Full code 10/15/18 14:10
[2018-10-15] MEDS: metFORMIN* 500 MG TAB PO SCH (17:52)
[2018-10-15] MEDS: Atorvastatin* 10 MG TAB PO SCH (17:52)
[2018-10-15] MEDS: Losartan TAB* 25 MG PO SCH (20:19)
[2018-10-15] MEDS: Aspirin 81 mg CHEW TAB* 81 MG TAB.CHEW PO SCH (20:19)
[2018-10-16] MEDS: Acetaminophen TAB* 325 MG PO PRN ×4 (00:14→21:06)
[2018-10-16 06:08] LABS: ABS Basophils 0.1 10^3/ul (0-0.2); ABS Eosinophils 0.2 10^3/ul (0-0.6); ABS Lymphocytes 2.1 10^3/ul (1.0-4.8); ABS Monocytes 0.3 10^3/ul (0-0.8); ABS Neutrophils 3.6 10^3/ul (1.5-7.7); ABS Nucleated RBC 0 10^3/ul; Eosinophil % 3.4 %; Hematocrit 36 % (35-47); Hemoglobin 11.8 g/dl (12.0-16.0); Lymphocyte % 32.7 %; Mean Corpuscular HGB Conc 33 g/dl (31-36); Mean Corpuscular Hemoglobin 32 pg (27-31); Mean Corpuscular Volume 96 fL (80-97); Mean Platelet Volume 8.5 fL (7.4-10.4); Nucleated Red Blood Cells % 0; Platelet Count 311 10^3/ul (150-450); Red Blood Count 3.72 10^6/ul (4.00-5.40); Red Cell Distribution Width 13 % (10.5-15); White Blood Count 6.3 10^3/ul (3.5-10.8)
[2018-10-16 06:37] LABS: Albumin 3.3 g/dL (3.2-5.2); Albumin/Globulin Ratio 1.2 (1-3); BUN/Creatinine Ratio 15.4 (8-20); Calcium 9.4 mg/dL (8.6-10.3); EGFR African American 91.5 (>60); EGFR Non-African American 75.6 (>60); Globulin 2.8 g/dL (2-4); Potassium 3.9 mmol/L (3.5-5.0); Total Bilirubin 0.5 mg/dL (0.2-1.0); Total Protein 6.1 g/dL (6.4-8.9)
[2018-10-16] MEDS: Insulin LISPRO* 1 UNITS UNIT SUBCUT SCH ×4 (07:15→20:45)
[2018-10-16] MEDS: Docusate CAP* 100 MG PO SCH ×2 (08:21→21:09)
[2018-10-16] MEDS: Enoxaparin(*) 40 MG/0.4 ML SYR SUBCUT SCH (09:04)
--- NOTE | 2018-10-16 12:41 | PMRUTEAM ---
PMRU: Team Meeting Current Status: Nursing: Current Status Skin Deviations [Back] Rash Skin Deviations [Right Leg] Incision Skin Deviation Description [ resolving Back] Skin Deviation Description [ drsg/immobilizer/cryounit Right Leg] Physical Therapy: Current Status Bed Mobility Assistance Independent Transfer Mobility Assistance Supervision Transfer/Bed Mobility Rolling Walker Recommended Devices Ambulation Assistance Contact Guard Assist Ambulation Assistive Devices Rolling Walker Number of Feet Patient 10 Ambulated Stairs Assistance NT Stairs Recommended Devices Crutches,Two Rails Number of Stairs 5 Wheelchair Distance (ft) 150 Occupational Therapy: Current Status Upper Body Dressing Supervision Lower Body Dressing Min Assist Bathing Min Assist Toileting Contact Guard Assist Toilet Transfer Contact Guard Assist Shower Transfer Contact Guard Assist Eating Independent Social Work: Current Status Discharge Plan return home with home care svs and family support Potential for Family Training pt's family are involved and supportive Anticipated Discharge Home Destination Discharge With home care svs and family support Goals: Physical Therapy: Updated Goals Transfer/Bed Mobility Rolling Walker Recommended Devices Occupational Therapy: Initial Goals Goals to be Completed in (Days 7-10 days ) Upper Body Bathing Routine Independent Lower Body Bathing Routine Modified Independent with Upper Body Dressing Routine Independent Lower Body Dressing Routine Modified Independent with Toilet Hygeine and Clothing Modified Independent with Management Routine Toilet Transfer Routine Modified Independent with Step-In Shower Transfer Modified Independent with Routine Functional Transfers for ADL Modified Independent with Grooming Routine Independent Social Work: Goals Discharge Plan return home with home care svs and family support Potential for Family Training pt's family are involved and supportive Anticipated Discharge Home Destination Discharge With home care svs and family support Care Plan: Care Plan Cardiovascular- Improve/Maintain Start: 10/13/18 22:36 Freq: QSHIFT Status: Active Target: Protocol: Activity Type Activity Date Activity User E-Sign Co-Sign Detail Recorded Client Recorded Date Recorded By Document 10/16/18 11:32 [id number] 10/16/18 11:33 [id number] 10/16/18 11:32 PMRU Outcome: Cardiovascular Vital Signs q Shift for 48hrs Then BID Yes Daily Weight Ordered No Current Cardiovascular Outcome/Goal Maintain/ Achieve Baseline HR, BP , Perfusion Free of Abnormal Cardiac Symptoms Progression Toward Outcome/Goal Progressing DVT Prophylaxis- Improve/Maintain Start: 10/13/18 22:36 Freq: QSHIFT Status: Active Target: Protocol: Activity Type Activity Date Activity User E-Sign Co-Sign Detail Recorded Client Recorded Date Recorded By Document 10/16/18 11:32 [id number] 10/16/18 11:33 [id number] 10/16/18 11:32 PMRU Outcome: DVT Prophylaxis Outcome/Goals Remains Free of DVT Complies with DVT Prophylaxis /Treatment Demonstrates Knowledge of DVT Prevention/ Treatment Progression Toward Outcome/Goals Progressing Education-Improve/Maintain Start: 10/13/18 22:36 Freq: QSHIFT Status: Active Target: Protocol: Activity Type Activity Date Activity User E-Sign Co-Sign Detail Recorded Client Recorded Date Recorded By Document 10/16/18 11:32 [id number] 10/16/18 11:33 [id number] 10/16/18 11:32 PMRU Outcome: Education Outcome/Goals Encourage Questions Progression Toward Outcome/Goals Progressing Metabolic Status- Improve/Maintain Start: 10/13/18 22:36 Freq: QSHIFT Status: Active Target: Protocol: Activity Type Activity Date Activity User E-Sign Co-Sign Detail Recorded Client Recorded Date Recorded By Document 10/16/18 11:32 [id number] 10/16/18 11:33 [id number] 10/16/18 11:32 PMRU Outcome: Metabolic Status Have Fingersticks Been Ordered Yes Fingerstick Order Frequency AC & HS Outcome/Goals Maintain/ Improve Metabolic Status Progression Toward Outcome/Goals Progressing Pain/Comfort- Improve/Maintain Start: 10/13/18 22:36 Freq: QSHIFT Status: Active Target: Protocol: Activity Type Activity Date Activity User E-Sign Co-Sign Detail Recorded Client Recorded Date Recorded By Document 10/16/18 11:32 [id number] 10/16/18 11:33 [id number] 10/16/18 11:32 PMRU Outcome: Pain/Comfort Outcome/Goals Demonstrates Knowledge and Use of Available Comfort Measures Achieves Acceptable Comfort/Pain Level as Determined by Patient/Condit Maintain Comfort Level Allowing Patient to Fully Participate in Rehab Progression Toward Outcome/Goals Progressing Safety- Improve/Maintain Start: 10/13/18 22:36 Freq: QSHIFT Status: Active Target: Protocol: Activity Type Activity Date Activity User E-Sign Co-Sign Detail Recorded Client Recorded Date Recorded By Document 10/16/18 11:32 [id number] 10/16/18 11:33 [id number] 10/16/18 11:32 PMRU Outcome: Safety Outcome/Goals Remain Free of Injury or Harm Cooperates with Safety Measures for Least Restrictive Environment Prevent Falls/ Injury Progression Toward Outcome/Goals Progressing Medicine Note: Length of Stay: 7 days Anticipated Discharge Destination: Home Tentative Discharge Date: 10/23/18 Discharged to: Home
[2018-10-16] MEDS: Atorvastatin* 10 MG TAB PO SCH (17:23)
[2018-10-16] MEDS: metFORMIN* 500 MG TAB PO SCH (17:23)
--- NOTE | 2018-10-16 17:59 | PN ---
Progress Note Date of Service: 10/16/18 Note: SERGE BONILLA was visited. Therapy notes read and reviewed. She was discussed in interdisciplinary plan of care rounds. She is doing well. Her brace was adjusted. BS are ok Current Medications: Active Medications Generic Name Dose Route Start Last Admin Trade Name Freq PRN Reason Stop Dose Admin Acetaminophen 975 mg 10/13/18 20:08 10/16/18 14:41 Tylenol Tab* PO 975 mg Q6H PRN Administration PAIN - MODERATE Aspirin 81 mg 10/13/18 21:00 10/15/18 20:19 Aspirin 81 Mg Chew Tab* PO 81 mg 2100 MARILYN Administration Atorvastatin Calcium 10 mg 10/13/18 17:00 10/16/18 17:23 Lipitor* PO 10 mg 1700 MARILYN Administration Dextrose 12.5 gm 10/13/18 16:55 D50w Syringe 50 Ml* IV PUSH .FOR FS < 60 - SS PRN FS < 60 Docusate Sodium 100 mg 10/13/18 21:00 10/16/18 08:21 Colace Cap* PO Not Given BID MARILYN Enoxaparin Sodium 40 mg 10/14/18 09:00 10/16/18 09:04 Lovenox(*) SUBCUT 40 mg Q24H MARILYN Administration Insulin Human Lispro 0 - 10 units 10/13/18 17:00 10/16/18 16:42 Humalog* SUBCUT Not Given ACHS [facility] Protocol Losartan Potassium 75 mg 10/13/18 21:00 10/15/18 20:19 Cozaar Tab* PO 75 mg 2100 MARILYN Administration Magnesium Hydroxide 30 ml 10/13/18 16:46 Milk Of Magnesia Liq* PO Q6H PRN CONSTIPATION Metformin HCl 500 mg 10/13/18 17:00 10/16/18 17:23 Glucophage* PO 500 mg 1700 MARILYN Administration Senna 2 tab 10/13/18 16:46 Senokot Tab* PO BEDTIME PRN CONSTIPATION Vital Signs: Vital Signs Temp Pulse Resp BP Pulse Ox 98.1 F 76 16 131/53 98 10/16/18 16:03 10/16/18 16:03 10/16/18 16:03 10/16/18 16:03 10/16/18 16:20 Lab Results: Laboratory Results - last 24 hr 10/15/18 10/16/18 10/16/18 20:19 05:55 05:55 WBC 6.3 RBC 3.72 L Hgb 11.8 L Hct 36 MCV 96 MCH 32 H MCHC 33 RDW 13 Plt Count 311 MPV 8.5 Neut % (Auto) 57.8 Lymph % (Auto) 32.7 Davis % (Auto) 5.2 Eos % (Auto) 3.4 Baso % (Auto) 0.9 Absolute Neuts (auto) 3.6 Absolute Lymphs (auto) 2.1 Absolute Monos (auto) 0.3 Absolute Eos (auto) 0.2 Absolute Basos (auto) 0.1 Absolute Nucleated RBC 0 Nucleated RBC % 0 Sodium 140 Potassium 3.9 Chloride 106 Carbon Dioxide 28 Anion Gap 6 BUN 12 Creatinine 0.78 Est GFR ( Amer) 91.5 Est GFR (Non-Af Amer) 75.6 BUN/Creatinine Ratio 15.4 Glucose 122 H POC Glucose (mg/dL) 123 H Calcium 9.4 Total Bilirubin 0.50 AST 13 ALT 16 Alkaline Phosphatase 102 Total Protein 6.1 L Albumin 3.3 Globulin 2.8 Albumin/Globulin Ratio 1.2 10/16/18 10/16/18 12:00 16:39 WBC RBC Hgb Hct MCV MCH MCHC RDW Plt Count MPV Neut % (Auto) Lymph % (Auto) Davis % (Auto) Eos % (Auto) Baso % (Auto) Absolute Neuts (auto) Absolute Lymphs (auto) Absolute Monos (auto) Absolute Eos (auto) Absolute Basos (auto) Absolute Nucleated RBC Nucleated RBC % Sodium Potassium Chloride Carbon Dioxide Anion Gap BUN Creatinine Est GFR ( Amer) Est GFR (Non-Af Amer) BUN/Creatinine Ratio Glucose POC Glucose (mg/dL) 118 H 111 H Calcium Total Bilirubin AST ALT Alkaline Phosphatase Total Protein Albumin Globulin Albumin/Globulin Ratio Exam: HEENT: EOMI LUNGS: CLear bilaterally HEART: Reg rhythm ABDOMEN: Soft EXTREMITIES: RLE in hinged knee brace. Skin over ankle red NEUROLOGIC: A&O. Moves all 4 extremities. Assessment/Plan: 1. Right comminuted tibial plateau fracture, S/P ORIF: NWB RLE. PT/OT. 2. DM: Metformin/SSI 3. Analgesia: Tylenol 4. HTN: Cozaar 5. DVT Prophylaxis: Lovenox 6. Advanced Directives: Full code 10/16/18 17:59
[2018-10-16] MEDS: Aspirin 81 mg CHEW TAB* 81 MG TAB.CHEW PO SCH (21:06)
[2018-10-16] MEDS: Losartan TAB* 25 MG PO SCH (21:06)
[2018-10-17] MEDS: Enoxaparin(*) 40 MG/0.4 ML SYR SUBCUT SCH (08:08)
[2018-10-17] MEDS: Docusate CAP* 100 MG PO SCH ×2 (08:10→19:58)
[2018-10-17] MEDS: Insulin LISPRO* 1 UNITS UNIT SUBCUT SCH ×4 (08:43→20:26)
--- NOTE | 2018-10-17 12:59 | PMRUTEAM ---
PMRU: Team Meeting Current Status: Nursing: Current Status Skin Deviations [Back] Rash Skin Deviations [Right Leg] Incision Skin Deviation Description [ resolving Back] Skin Deviation Description [ intact with clips.telfa and skyler wrap applied Right Leg] Bladder Current Status voiding without difficulty Bowel Current Status bm 10/16/18. declined colace Nutrition Current Status appetite good Medication Current Status no pain meds given this am Physical Therapy: Current Status Bed Mobility Assistance Supervision Transfer Mobility Assistance Supervision Transfer/Bed Mobility Rolling Walker Recommended Devices Ambulation Assistance Supervision Ambulation Assistive Devices Rolling Walker Number of Feet Patient 30 Ambulated Ambulation Comment Pt. presents a hop to type gait. Stairs Assistance Not Tested Stairs Recommended Devices Crutches,Two Rails Number of Stairs 5 Curb Not Tested Manual Wheelchair Control/ Bilateral UE's Technique Wheelchair Propulsion Ability Independent Wheelchair Distance (ft) 150 Objective Comments patient continues to demosntrate good abiltiy in W/C mobility, but needs occasional assist in positioning and part management. Occupational Therapy: Current Status Upper Body Dressing Supervision Lower Body Dressing Min Assist Bathing Contact Guard Assist Toileting Supervision Toilet Transfer Supervision Shower Transfer Contact Guard Assist Eating Ind with Adaptive Equip Rec Therapy: Current Status Summary of Assessment and RT services and been introduced and assessment has Clinical Impression been completed. Pt. has leisure outlets in her room and is open to continued visits. Treatment Goals Pt. will engage in leisure activities while on the unit. Treatment Plan Provide RT services and encourage involvement. Social Work: Current Status Discharge Plan return home with home care svs and family support Potential for Family Training pt's aunt is planning on attending family training Anticipated Discharge Home Destination Discharge With home care svs and family support Nutrition: Current Status Monitoring full assessment planned 10/20. Per previous visit prior to PMRU adm, she was eating well without questions or complaints re: consistent carb diet. Hx T2DM; has taken metformin at home "for years". A1c last January (6.9%) improved from 7.4% and indicates good control. Post-op bowel function appears to have regulated per documentation. Initial nutrition goals as outlined below. Goals: Physical Therapy: Initial Goals Bed Mobility Assistance Independent Transfer Mobility Assistance Independent Transfer/Bed Mobility Rolling Walker Recommended Devices Ambulation Independent Ambulation Recommended Devices Rolling Walker Ambulation Distance 50 Wheelchair Propulsion Ability Independent Wheelchair Distance (ft) 150' Stairs Assistance Not Tested Number of Stairs Pt. has ramp at home. Physical Therapy: Updated Goals Bed Mobility Assistance Independent Transfer Mobility Assistance Independent Transfer/Bed Mobility Rolling Walker Recommended Devices Ambulation Assistance Independent Ambulation Assistive Devices Rolling Walker Ambulation Distance (ft) 50 Wheelchair Distance (ft) 150 Stairs Assistance Independent Stairs Recommended Devices None Number of Stairs Pt. has ramp at home. Home Exercise Program Independent Assistance Occupational Therapy: Initial Goals Goals to be Completed in (Days 7-10 days ) Upper Body Bathing Routine Independent Lower Body Bathing Routine Modified Independent with Upper Body Dressing Routine Independent Lower Body Dressing Routine Modified Independent with Toilet Hygeine and Clothing Modified Independent with Management Routine Toilet Transfer Routine Modified Independent with Step-In Shower Transfer Modified Independent with Routine Functional Transfers for ADL Modified Independent with Grooming Routine Independent Nursing: Goals Bladder Goal independent Bowel Goal independent Nutrition Goal 100% of all meals eaten Medication Goal independent Nutrition: Goals Intervention Goals 1. adequate po intake to maintain lean body mass and hydration without add'l wt gain 2. glycemic control within inpatient parameters and without s/sx hypo- or hyperglycemia 3. achieve and maintain serum electrolytes levels WNL 4. achieve and maintain regulated bowel pattern without c/o constipation (or diarrhea) Social Work: Goals Discharge Plan return home with home care svs and family support Potential for Family Training pt's aunt is planning on attending family training Anticipated Discharge Home Destination Discharge With home care svs and family support Care Plan: Care Plan ADL's - Improve/Maintain Start: 10/16/18 16:05 Freq: DAILY Status: Active Target: Protocol: Activity Type Activity Date Activity User E-Sign Co-Sign Detail Recorded Client Recorded Date Recorded By Document 10/17/18 10:54 [id number] 10/17/18 10:55 [id number] 10/17/18 10:54 PMRU Outcome: ADL's/ADL Transfers Orders/Interventions Occupational Therapy Evaluation & Treatment Communication Tool in Patient Room Device Yes Address Deficits Secondary To: s/p fall, right tib fx s/p ORIF Patient to receive OT 5x/wk for 60-120 Therex min/day Self Care Management Group Therapy UE/LE ADL's with Assist Yes: Juani ADL Transfers with Assist Yes: Juani Toileting: Transfers,Clothing Management Yes: Juani ,Hygeine w/Assist Light Kitchen/Laundry w/Assist No Progression Toward Outcome/Goals Progressing Outcome/Goals Met Pt participated well in treatment session, increased c/o shoulder stiffness and Right shoulder pain during session, RN aware. Cardiovascular- Improve/Maintain Start: 10/13/18 22:36 Freq: QSHIFT Status: Active Target: Protocol: Activity Type Activity Date Activity User E-Sign Co-Sign Detail Recorded Client Recorded Date Recorded By Document 10/17/18 11:02 [id number] 10/17/18 11:03 [id number] 10/17/18 11:02 PMRU Outcome: Cardiovascular Vital Signs q Shift for 48hrs Then BID Yes Daily Weight Ordered No Current Cardiovascular Outcome/Goal Maintain/ Achieve Baseline HR, BP , Perfusion Free of Abnormal Cardiac Symptoms Progression Toward Outcome/Goal Progressing DVT Prophylaxis- Improve/Maintain Start: 10/13/18 22:36 Freq: QSHIFT Status: Active Target: Protocol: Activity Type Activity Date Activity User E-Sign Co-Sign Detail Recorded Client Recorded Date Recorded By Document 10/17/18 11:02 [id number] 10/17/18 11:03 [id number] 10/17/18 11:02 PMRU Outcome: DVT Prophylaxis Outcome/Goals Remains Free of DVT Complies with DVT Prophylaxis /Treatment Demonstrates Knowledge of DVT Prevention/ Treatment Progression Toward Outcome/Goals Progressing Education-Improve/Maintain Start: 10/13/18 22:36 Freq: QSHIFT Status: Active Target: Protocol: Activity Type Activity Date Activity User E-Sign Co-Sign Detail Recorded Client Recorded Date Recorded By Document 10/17/18 11:02 [id number] 10/17/18 11:03 [id number] 10/17/18 11:02 PMRU Outcome: Education Outcome/Goals Encourage Questions Progression Toward Outcome/Goals Progressing Metabolic Status- Improve/Maintain Start: 10/13/18 22:36 Freq: QSHIFT Status: Active Target: Protocol: Activity Type Activity Date Activity User E-Sign Co-Sign Detail Recorded Client Recorded Date Recorded By Document 10/17/18 11:02 [id number] 10/17/18 11:03 [id number] 10/17/18 11:02 PMRU Outcome: Metabolic Status Have Fingersticks Been Ordered Yes Fingerstick Order Frequency AC & HS Outcome/Goals Maintain/ Improve Metabolic Status Progression Toward Outcome/Goals Progressing Pain/Comfort- Improve/Maintain Start: 10/13/18 22:36 Freq: QSHIFT Status: Active Target: Protocol: Activity Type Activity Date Activity User E-Sign Co-Sign Detail Recorded Client Recorded Date Recorded By Document 10/17/18 11:02 [id number] 10/17/18 11:03 [id number] 10/17/18 11:02 PMRU Outcome: Pain/Comfort Outcome/Goals Demonstrates Knowledge and Use of Available Comfort Measures Achieves Acceptable Comfort/Pain Level as Determined by Patient/Condit Maintain Comfort Level Allowing Patient to Fully Participate in Rehab Progression Toward Outcome/Goals Progressing Outcome/Goals Met Comment no pain meds given thus far this shift Safety- Improve/Maintain Start: 10/13/18 22:36 Freq: QSHIFT Status: Active Target: Protocol: Activity Type Activity Date Activity User E-Sign Co-Sign Detail Recorded Client Recorded Date Recorded By Document 10/17/18 11:02 [id number] 10/17/18 11:03 [id number] 10/17/18 11:02 PMRU Outcome: Safety Outcome/Goals Remain Free of Injury or Harm Cooperates with Safety Measures for Least Restrictive Environment Prevent Falls/ Injury Progression Toward Outcome/Goals Progressing Medicine Note: Length of Stay: 4 days Anticipated Discharge Destination: Home Tentative Discharge Date: 10/21/18 Discharged to: home
[2018-10-17] MEDS: Acetaminophen TAB* 325 MG PO PRN (16:12)
[2018-10-17] MEDS: metFORMIN* 500 MG TAB PO SCH (16:52)
[2018-10-17] MEDS: Atorvastatin* 10 MG TAB PO SCH (16:52)
--- NOTE | 2018-10-17 17:33 | PN ---
Progress Note Date of Service: 10/17/18 Note: SERGE BONILLA was visited. Therapy notes read and reviewed. She was discussed in interdisciplinary team rounds. She was complaining of pain in her shoulder, but more specifically her clavicle. I ordered an xray of her clavicle. Possible lucency seen. May need follow up CT scan. Will d/w ortho Current Medications: Active Medications Generic Name Dose Route Start Last Admin Trade Name Freq PRN Reason Stop Dose Admin Acetaminophen 975 mg 10/13/18 20:08 10/17/18 16:12 Tylenol Tab* PO 975 mg Q6H PRN Administration PAIN - MODERATE Aspirin 81 mg 10/13/18 21:00 10/16/18 21:06 Aspirin 81 Mg Chew Tab* PO 81 mg 2100 MARILYN Administration Atorvastatin Calcium 10 mg 10/13/18 17:00 10/17/18 16:52 Lipitor* PO 10 mg 1700 MARILYN Administration Dextrose 12.5 gm 10/13/18 16:55 D50w Syringe 50 Ml* IV PUSH .FOR FS < 60 - SS PRN FS < 60 Docusate Sodium 100 mg 10/13/18 21:00 10/17/18 08:10 Colace Cap* PO Not Given BID MARILYN Enoxaparin Sodium 40 mg 10/14/18 09:00 10/17/18 08:08 Lovenox(*) SUBCUT 40 mg Q24H MARILYN Administration Insulin Human Lispro 0 - 10 units 10/13/18 17:00 10/17/18 16:42 Humalog* SUBCUT Not Given ACHS MARILYN Protocol Losartan Potassium 75 mg 10/13/18 21:00 10/16/18 21:06 Cozaar Tab* PO 75 mg 2100 MARILYN Administration Magnesium Hydroxide 30 ml 10/13/18 16:46 Milk Of Magnesia Liq* PO Q6H PRN CONSTIPATION Metformin HCl 500 mg 10/13/18 17:00 10/17/18 16:52 Glucophage* PO 500 mg 1700 MARILYN Administration Senna 2 tab 10/13/18 16:46 Senokot Tab* PO BEDTIME PRN CONSTIPATION Vital Signs: Vital Signs Temp Pulse Resp BP Pulse Ox 98.0 F 75 16 129/47 96 10/17/18 06:21 10/17/18 06:21 10/17/18 06:21 10/17/18 06:21 10/17/18 06:21 Lab Results: Laboratory Results - last 24 hr 10/16/18 10/17/18 10/17/18 20:40 07:36 12:12 POC Glucose (mg/dL) 107 H 138 H 97 10/17/18 16:31 POC Glucose (mg/dL) 93 Exam: HEENT: EOMI LUNGS: CLear bilaterally HEART: Reg rhythm ABDOMEN: Soft EXTREMITIES: RLE in hinged knee brace. Skin over ankle red NEUROLOGIC: A&O. Moves all 4 extremities. Assessment/Plan: 1. Right comminuted tibial plateau fracture, S/P ORIF: NWB RLE. PT/OT. 2. DM: Metformin/SSI 3. Analgesia: Tylenol 4. HTN: Cozaar 5. DVT Prophylaxis: Lovenox 6. Advanced Directives: Full code 7. Possible clavicle fracture: will d/w ortho 10/17/18 17:33
[2018-10-17] MEDS: Aspirin 81 mg CHEW TAB* 81 MG TAB.CHEW PO SCH (19:54)
[2018-10-17] MEDS: Losartan TAB* 25 MG PO SCH (19:54)
[2018-10-18] MEDS: Acetaminophen TAB* 325 MG PO PRN ×4 (00:12→20:06)
[2018-10-18] MEDS: Insulin LISPRO* 1 UNITS UNIT SUBCUT SCH ×4 (08:07→20:17)
[2018-10-18] MEDS: Enoxaparin(*) 40 MG/0.4 ML SYR SUBCUT SCH (10:00)
[2018-10-18] MEDS: Docusate CAP* 100 MG PO SCH ×2 (10:00→20:42)
[2018-10-18] MEDS: metFORMIN* 500 MG TAB PO SCH (17:03)
[2018-10-18] MEDS: Atorvastatin* 10 MG TAB PO SCH (17:03)
--- NOTE | 2018-10-18 19:08 | PN ---
Progress Note Date of Service: 10/18/18 Note: SERGE BONILLA was visited. Therapy notes read and reviewed. I called her orthopedic surgeon who does not see evidence on x-ray of a fracture and I am in agreement. She had a follow up knee x-ray and her breanne will be removed tomorrow Current Medications: Active Medications Generic Name Dose Route Start Last Admin Trade Name Freq PRN Reason Stop Dose Admin Acetaminophen 975 mg 10/13/18 20:08 10/18/18 13:57 Tylenol Tab* PO 975 mg Q6H PRN Administration PAIN - MODERATE Aspirin 81 mg 10/13/18 21:00 10/17/18 19:54 Aspirin 81 Mg Chew Tab* PO 81 mg 2100 MARILYN Administration Atorvastatin Calcium 10 mg 10/13/18 17:00 10/18/18 17:03 Lipitor* PO 10 mg 1700 MARILYN Administration Dextrose 12.5 gm 10/13/18 16:55 D50w Syringe 50 Ml* IV PUSH .FOR FS < 60 - SS PRN FS < 60 Docusate Sodium 100 mg 10/13/18 21:00 10/18/18 10:00 Colace Cap* PO Not Given BID MARILYN Enoxaparin Sodium 40 mg 10/14/18 09:00 10/18/18 10:00 Lovenox(*) SUBCUT 40 mg Q24H MARILYN Administration Insulin Human Lispro 0 - 10 units 10/13/18 17:00 10/18/18 16:52 Humalog* SUBCUT Not Given ACHS MARILYN Protocol Losartan Potassium 75 mg 10/13/18 21:00 10/17/18 19:54 Cozaar Tab* PO 75 mg 2100 MARILYN Administration Magnesium Hydroxide 30 ml 10/13/18 16:46 Milk Of Magnesia Liq* PO Q6H PRN CONSTIPATION Metformin HCl 500 mg 10/13/18 17:00 10/18/18 17:03 Glucophage* PO 500 mg 1700 MARILYN Administration Nystatin 1 applic 10/18/18 21:00 Nystatin Top Powder* TOPICAL BID MARILYN Senna 2 tab 10/13/18 16:46 Senokot Tab* PO BEDTIME PRN CONSTIPATION Vital Signs: Vital Signs Temp Pulse Resp BP Pulse Ox 97.9 F 74 18 129/45 100 10/18/18 15:57 10/18/18 15:57 10/18/18 15:57 10/18/18 15:57 10/18/18 17:06 Lab Results: Laboratory Results - last 24 hr 10/17/18 10/18/18 10/18/18 20:25 07:39 11:43 POC Glucose (mg/dL) 102 H 124 H 108 H 10/18/18 16:46 POC Glucose (mg/dL) 102 H Exam: HEENT: EOMI LUNGS: CLear bilaterally HEART: Reg rhythm ABDOMEN: Soft EXTREMITIES: RLE in hinged knee brace. Skin over ankle red NEUROLOGIC: A&O. Moves all 4 extremities. Assessment/Plan: 1. Right comminuted tibial plateau fracture, S/P ORIF: NWB RLE. PT/OT. 2. DM: Metformin/SSI 3. Analgesia: Tylenol 4. HTN: Cozaar 5. DVT Prophylaxis: Lovenox 6. Advanced Directives: Full code 7. Possible clavicle fracture: will d/w ortho 10/18/18 19:08
[2018-10-18] MEDS: Aspirin 81 mg CHEW TAB* 81 MG TAB.CHEW PO SCH (20:04)
[2018-10-18] MEDS: Losartan TAB* 25 MG PO SCH (20:04)
[2018-10-18] MEDS: Nystatin TOP POWDER* 15 GM BTL TOPICAL SCH (20:42)
[2018-10-19] MEDS: Insulin LISPRO* 1 UNITS UNIT SUBCUT SCH ×4 (07:55→21:08)
[2018-10-19] MEDS: Docusate CAP* 100 MG PO SCH ×2 (07:59→21:17)
[2018-10-19] MEDS: Nystatin TOP POWDER* 15 GM BTL TOPICAL SCH ×2 (08:00→21:14)
[2018-10-19] MEDS: Acetaminophen TAB* 325 MG PO PRN ×3 (08:00→21:13)
[2018-10-19] MEDS: Enoxaparin(*) 40 MG/0.4 ML SYR SUBCUT SCH (11:03)
--- NOTE | 2018-10-19 14:20 | PN ---
Progress Note - Progress Note Date of Service: 10/19/18 Note: I saw Noelle. Doing well, working with PT, TDWB. ROM 0-90. Incision looks great , sutures removed and steri strips placed. Encouraged her to focus on improving ROM. 2 more weeks lovenox then just an aspirin daily for DVT prophylaxis. f/u 1 month in office with new xrays. Continue TDWB. Greg Cortez MD
[2018-10-19] MEDS: Atorvastatin* 10 MG TAB PO SCH (16:42)
[2018-10-19] MEDS: metFORMIN* 500 MG TAB PO SCH (16:42)
--- NOTE | 2018-10-19 20:41 | PN ---
Progress Note Date of Service: 10/19/18 Note: SERGE BONILLA was visited. Therapy notes read and reviewed. Her sutures were removed by Dr. Quiroz. She has few complaints of pain. SHe will need an additional 14 days of Lovenox-she will finish Nov 02. Current Medications: Active Medications Generic Name Dose Route Start Last Admin Trade Name Freq PRN Reason Stop Dose Admin Acetaminophen 975 mg 10/13/18 20:08 10/19/18 14:32 Tylenol Tab* PO 975 mg Q6H PRN Administration PAIN - MODERATE Aspirin 81 mg 10/13/18 21:00 10/18/18 20:04 Aspirin 81 Mg Chew Tab* PO 81 mg 2100 MARILYN Administration Atorvastatin Calcium 10 mg 10/13/18 17:00 10/19/18 16:42 Lipitor* PO 10 mg 1700 MARILYN Administration Dextrose 12.5 gm 10/13/18 16:55 D50w Syringe 50 Ml* IV PUSH .FOR FS < 60 - SS PRN FS < 60 Docusate Sodium 100 mg 10/13/18 21:00 10/19/18 07:59 Colace Cap* PO Not Given BID MARILYN Enoxaparin Sodium 40 mg 10/14/18 09:00 10/19/18 11:03 Lovenox(*) SUBCUT 40 mg Q24H MARILYN Administration Insulin Human Lispro 0 - 10 units 10/13/18 17:00 10/19/18 16:42 Humalog* SUBCUT Not Given ACHS MARILY[facility] Protocol Losartan Potassium 75 mg 10/13/18 21:00 10/18/18 20:04 Cozaar Tab* PO 75 mg 2100 MARILYN Administration Magnesium Hydroxide 30 ml 10/13/18 16:46 Milk Of Magnesia Liq* PO Q6H PRN CONSTIPATION Metformin HCl 500 mg 10/13/18 17:00 10/19/18 16:42 Glucophage* PO 500 mg 1700 MARILYN Administration Nystatin 1 applic 10/18/18 21:00 10/19/18 08:00 Nystatin Top Powder* TOPICAL 1 applic BID MARILYN Administration Senna 2 tab 10/13/18 16:46 Senokot Tab* PO BEDTIME PRN CONSTIPATION Vital Signs: Vital Signs Temp Pulse Resp BP Pulse Ox 97.9 F 78 16 134/46 100 10/19/18 15:25 10/19/18 15:25 10/19/18 15:25 10/19/18 15:25 10/19/18 15:25 Lab Results: Laboratory Results - last 24 hr 10/18/18 10/19/18 10/19/18 20:15 07:38 11:46 POC Glucose (mg/dL) 124 H 125 H 83 10/19/18 16:42 POC Glucose (mg/dL) 109 H Exam: HEENT: EOMI LUNGS: CLear bilaterally HEART: Reg rhythm ABDOMEN: Soft EXTREMITIES: RLE in hinged knee brace. NEUROLOGIC: A&O. Moves all 4 extremities. Assessment/Plan: 1. Right comminuted tibial plateau fracture, S/P ORIF: NWB RLE. PT/OT. 2. DM: Metformin/SSI 3. Analgesia: Tylenol 4. HTN: Cozaar 5. DVT Prophylaxis: Lovenox until Nov 02, then ASA 6. Advanced Directives: Full code 7. Possible clavicle fracture: will d/w ortho 10/19/18 20:42
[2018-10-19] MEDS: Aspirin 81 mg CHEW TAB* 81 MG TAB.CHEW PO SCH (21:13)
[2018-10-19] MEDS: Losartan TAB* 25 MG PO SCH (21:13)
[2018-10-20] MEDS: Acetaminophen TAB* 325 MG PO PRN ×3 (07:19→21:18)
[2018-10-20] MEDS: Insulin LISPRO* 1 UNITS UNIT SUBCUT SCH ×4 (07:26→21:13)
[2018-10-20] MEDS: Docusate CAP* 100 MG PO SCH ×2 (07:26→21:14)
[2018-10-20] MEDS: Nystatin TOP POWDER* 15 GM BTL TOPICAL SCH ×2 (10:27→21:17)
[2018-10-20] MEDS: Enoxaparin(*) 40 MG/0.4 ML SYR SUBCUT SCH (10:27)
--- NOTE | 2018-10-20 10:33 | PN ---
Progress Note Date of Service: 10/20/18 Note: SERGE BONILLA was visited. Nursing and therapy notes read and reviewed. No chest pain, shortness of breath or abdominal pain. Current Medications: Active Medications Generic Name Dose Route Start Last Admin Trade Name Freq PRN Reason Stop Dose Admin Acetaminophen 975 mg 10/13/18 20:08 10/20/18 07:19 Tylenol Tab* PO 975 mg Q6H PRN Administration PAIN - MODERATE Aspirin 81 mg 10/13/18 21:00 10/19/18 21:13 Aspirin 81 Mg Chew Tab* PO 81 mg 2100 MARILYN Administration Atorvastatin Calcium 10 mg 10/13/18 17:00 10/19/18 16:42 Lipitor* PO 10 mg 1700 MARILYN Administration Dextrose 12.5 gm 10/13/18 16:55 D50w Syringe 50 Ml* IV PUSH .FOR FS < 60 - SS PRN FS < 60 Docusate Sodium 100 mg 10/13/18 21:00 10/20/18 07:26 Colace Cap* PO Not Given BID MARILYN Enoxaparin Sodium 40 mg 10/14/18 09:00 10/19/18 11:03 Lovenox(*) SUBCUT 40 mg Q24H MARILYN Administration Insulin Human Lispro 0 - 10 units 10/13/18 17:00 10/20/18 07:26 Humalog* SUBCUT Not Given ACHS [facility] Protocol Losartan Potassium 75 mg 10/13/18 21:00 10/19/18 21:13 Cozaar Tab* PO 75 mg 2100 MARILYN Administration Magnesium Hydroxide 30 ml 10/13/18 16:46 Milk Of Magnesia Liq* PO Q6H PRN CONSTIPATION Metformin HCl 500 mg 10/13/18 17:00 10/19/18 16:42 Glucophage* PO 500 mg 1700 MARILYN Administration Nystatin 1 applic 10/18/18 21:00 10/19/18 21:14 Nystatin Top Powder* TOPICAL 1 applic BID MARILYN Administration Senna 2 tab 10/13/18 16:46 Senokot Tab* PO BEDTIME PRN CONSTIPATION Vital Signs: Vital Signs Temp Pulse Resp BP Pulse Ox 97.9 F 64 18 121/55 100 10/19/18 15:25 10/20/18 06:03 10/20/18 06:03 10/20/18 06:03 10/20/18 06:03 Lab Results: Laboratory Results - last 24 hr 10/19/18 10/19/18 10/19/18 11:46 16:42 21:07 POC Glucose (mg/dL) 83 109 H 99 10/20/18 07:19 POC Glucose (mg/dL) 119 H Exam: GEN: no acute distress. alert and appropriate LUNGS: Clear to auscultation bilaterally HEART: Regular rate and rhythm ABDOMEN: Soft, + bowel sounds, non-tender, non-distended EXTREMITIES: RLE in hinged knee brace. No edema NEUROLOGIC: Motor 5/5 BLE with limited testing of right knee and hip. Sensation intact. Assessment/Plan: 1. Right comminuted tibial plateau fracture, S/P ORIF: TDWB RLE. Sutures out . f/u with Dr. Cortez in 1 month. PT/OT. 2. DM: Metformin/SSI 3. Analgesia: Tylenol 4. HTN: Cozaar 5. DVT Prophylaxis: Lovenox until Nov 02, then ASA. Teaching completed. 6. Advanced Directives: Full code 7. Right clavicle: Per Dr. Torres, ortho reviewed films and no fracture seen. 8. Dispo: anticipate d/c tomorrow with family support. 10/20/18 10:31
[2018-10-20] MEDS: metFORMIN* 500 MG TAB PO SCH (17:49)
[2018-10-20] MEDS: Atorvastatin* 10 MG TAB PO SCH (17:49)
[2018-10-20] MEDS: Aspirin 81 mg CHEW TAB* 81 MG TAB.CHEW PO SCH (21:16)
[2018-10-20] MEDS: Losartan TAB* 25 MG PO SCH (21:16)
[2018-10-21 06:28] VITALS: BP 121/57
[2018-10-21] MEDS: Insulin LISPRO* 1 UNITS UNIT SUBCUT SCH (07:45)
[2018-10-21] MEDS: Acetaminophen TAB* 325 MG PO PRN (08:08)
[2018-10-21] MEDS: Enoxaparin(*) 40 MG/0.4 ML SYR SUBCUT SCH (08:09)
[2018-10-21] MEDS: Docusate CAP* 100 MG PO SCH (08:10)
--- NOTE | 2018-10-21 08:45 | PN ---
Progress Note Date of Service: 10/21/18 Note: SERGE BONILLA was visited. Nursing and therapy notes read and reviewed. No chest pain, shortness of breath or abdominal pain. She is ready to go home today. No new concerns overnight. Current Medications: Active Medications Generic Name Dose Route Start Last Admin Trade Name Freq PRN Reason Stop Dose Admin Acetaminophen 975 mg 10/13/18 20:08 10/21/18 08:08 Tylenol Tab* PO 975 mg Q6H PRN Administration PAIN - MODERATE Aspirin 81 mg 10/13/18 21:00 10/20/18 21:16 Aspirin 81 Mg Chew Tab* PO 81 mg 2100 MARILYN Administration Atorvastatin Calcium 10 mg 10/13/18 17:00 10/20/18 17:49 Lipitor* PO 10 mg 1700 MARILYN Administration Dextrose 12.5 gm 10/13/18 16:55 D50w Syringe 50 Ml* IV PUSH .FOR FS < 60 - SS PRN FS < 60 Docusate Sodium 100 mg 10/13/18 21:00 10/21/18 08:10 Colace Cap* PO Not Given BID MARILYN Enoxaparin Sodium 40 mg 10/14/18 09:00 10/21/18 08:09 Lovenox(*) SUBCUT 40 mg Q24H MARILYN Administration Insulin Human Lispro 0 - 10 units 10/13/18 17:00 10/21/18 07:45 Humalog* SUBCUT Not Given ACHS [facility] Protocol Losartan Potassium 75 mg 10/13/18 21:00 10/20/18 21:16 Cozaar Tab* PO 75 mg 2100 MARILYN Administration Magnesium Hydroxide 30 ml 10/13/18 16:46 Milk Of Magnesia Liq* PO Q6H PRN CONSTIPATION Metformin HCl 500 mg 10/13/18 17:00 10/20/18 17:49 Glucophage* PO 500 mg 1700 MARILYN Administration Nystatin 1 applic 10/18/18 21:00 10/20/18 21:17 Nystatin Top Powder* TOPICAL 1 applic BID MARILYN Administration Senna 2 tab 10/13/18 16:46 Senokot Tab* PO BEDTIME PRN CONSTIPATION Vital Signs: Vital Signs Temp Pulse Resp BP Pulse Ox 97.9 F 66 16 121/57 97 10/21/18 06:07 10/21/18 06:07 10/21/18 06:07 10/21/18 06:07 10/21/18 06:07 Lab Results: Laboratory Results - last 24 hr 10/20/18 10/20/18 10/20/18 11:39 16:33 20:24 POC Glucose (mg/dL) 105 H 105 H 100 10/21/18 07:41 POC Glucose (mg/dL) 115 H Exam: GEN: no acute distress. alert and appropriate LUNGS: Clear to auscultation bilaterally HEART: Regular rate and rhythm ABDOMEN: Soft, + bowel sounds, non-tender, non-distended EXTREMITIES: RLE in hinged knee brace. No edema NEUROLOGIC: Motor 5/5 BLE with limited testing of right knee and hip. Sensation intact. Assessment/Plan: 1. Right comminuted tibial plateau fracture, S/P ORIF: TDWB RLE. Sutures taken out 10/19. f/u with Dr. Cortez in 1 month. 2. DM: Metformin/SSI 3. Analgesia: Tylenol 4. HTN: Cozaar 5. DVT Prophylaxis: Lovenox until Nov 02, then ASA. Teaching completed. 6. Advanced Directives: Full code 7. Right clavicle: Per Dr. Torres, ortho reviewed films and no fracture seen. 8. Dispo: d/c today with family support. 10/21/18 08:44
[2018-10-21] MEDS: Nystatin TOP POWDER* 15 GM BTL TOPICAL SCH (09:41)
--- NOTE | 2018-10-21 11:05 | DS ---
CC: Dr. Mullen; Dr. Cortez DISCHARGE SUMMARY: DATE OF ADMISSION: 10/13/18 DATE OF DISCHARGE: 10/21/18 PRIMARY CARE PROVIDER: Dr. Mullen. ORTHOPEDIC SURGEON: Dr. Cortez. REASON FOR ADMISSION: Right tibial plateau fracture. HISTORY OF PRESENT ILLNESS: For full details of her acute hospitalization leading up to her admission, please see the note dictated by Dr. Torres on 04/23. REHABILITATION COURSE: During her time on the [facility], she remained medically stable. She used Tylenol for pain control and seemed to tolerate that well. Because of some ongoing right shoulder pain and swelling at her sternoclavicular area, an x- ray was completed. This was reviewed with orthopedics and it was not felt that there was any fracture. Her sutures were removed by Dr. Cortez on 10/19/18 and he would like her to continue with touchdown weightbearing precautions to her right lower extremity. She has participated well with physical therapy and at the time of discharge, was independent with bed mobility, transfer using a 2-wheeled walker, and ambulation up to 50 feet using the 2-wheeled walker. She is independent with wheelchair mobility up to 200 feet. With occupational therapy, she also did well and is independent with eating. She should have supervision as needed for bathing and tub transfers initially. For dressing, she is independent using her walker, but needs assistance with her right sock. For toileting, she is independent using a walker and a commode as needed. Initially, she should have assistance for home management and cooking tasks with set up. Her brace on the right leg is locked for mobility. She may remove it for hygiene and bathing once she is seated. Her diabetes has been well controlled and she is back on her metformin. Her hypertension is still managed with Cozaar. For DVT prophylaxis, she has been receiving Lovenox 40 mg subcutaneously q.24 hours. This is continuing until 11/02/18, at which point she should switch to full- dose aspirin. Teaching was completed for Lovenox administration. DISCHARGE CONDITION: Good. DISCHARGE DISPOSITION: Home with family support. DISCHARGE DIAGNOSES: 1. Right tibial plateau fracture. 2. Diabetes mellitus. 3. Hypertension. 4. Hyperlipidemia. FOLLOWUP: 1. A referral has been sent to visiting nurse services for home care including physical therapy and occupational therapy as needed. They will visit with her on 10/23/18. 2. She should see Dr. Cortez in 1 month. 3. Follow up with Dr. Mullen in 1 to 2 weeks. DISCHARGE MEDICATIONS: 1. Nystatin powder or cream topically b.i.d. 2. Lovenox 40 mg subcutaneously q.24 hours until 11/02/18 and then change to full- dose aspirin. 3. Acetaminophen 975 mg q.6 hours p.r.n. pain. 4. Lovastatin 40 mg q.h.s. 5. Losartan 75 mg q.h.s. 6. Aspirin 81 mg q.h.s., switch to full-dose aspirin once Lovenox is completed. 7. Vitamin D3 one tablet at bedtime. 8. Calcium 500 mg q.h.s. 9. Metformin 500 mg q.p.m. [id number]/[facility] #: [id number] MTDD
== END 2018-10-21 11:20 | disposition home health service (06) | DRG 860 ==
LOC: PMRU 15:09
PROVIDERS: ADMIT Physical Medicine & Rehabilitation; ATTEND Physical Medicine & Rehabilitation
PROC: F07Z5ZZ Bed Mobility Treatment (ICD-10-PCS; principal; 2018-10-13)
PROC: F07Z9ZZ Gait Training/Functional Ambulation Treatment (ICD-10-PCS; 2018-10-13)
PROC: F07Z8ZZ Transfer Training Treatment (ICD-10-PCS; 2018-10-13)
PROC: F07Z4ZZ Wheelchair Mobility Treatment (ICD-10-PCS; 2018-10-13)
PROC: F08Z0ZZ Bathing/Showering Techniques Treatment (ICD-10-PCS; 2018-10-13)
PROC: F08Z1ZZ Dressing Techniques Treatment (ICD-10-PCS; 2018-10-13)
PROC: F08Z3ZZ Feeding/Eating Treatment (ICD-10-PCS; 2018-10-13)
DX: S82.141D Displaced bicondylar fracture of right tibia, subsequent encounter for closed fracture with routine healing (principal); W01.0XXD Fall on same level from slipping, tripping and stumbling without subsequent striking against object, subsequent encounter; E11.9 Type 2 diabetes mellitus without complications; I10 Essential (primary) hypertension; E78.5 Hyperlipidemia, unspecified; M25.511 Pain in right shoulder; Z79.84 Long term (current) use of oral hypoglycemic drugs; Z79.82 Long term (current) use of aspirin; Z79.899 Other long term (current) drug therapy; Z88.1 Allergy status to other antibiotic agents
CPT/HCPCS: 36415; 80053; 82565; 82947; 84520; 85025; A9270-GY; J1650

== ENCOUNTER → 2019-11-09 08:12 | Day surgery (SDC) | payer BC ==
--- NOTE | 2019-11-07 19:45 | HP ---
CC: Dr. Mullen* HISTORY AND PHYSICAL: DATE OF PLANNED ADMISSION AND SURGERY: 11/09/19 HISTORY OF PRESENT ILLNESS: Ms. Neal is a 59-year-old white female who is admitted with a left renal calculus for cystoscopy and insertion of left ureteral stent. Ms. Neal is a known stone former and 3 years ago, she had presented to the emergency room with symptoms of right renal colic and was noted to have a proximal right ureteral calculus. This was managed conservatively and the stone passed spontaneously. At that time, she was noted to have a 5- to 6-mm calculus in her left kidney. The calculus was asymptomatic and it was observed. The patient presented to my office 2 days prior to this admission with a 24- hour history of episodes of gross mostly painless hematuria. There was no associated flank pain and no voiding symptoms. Urinalysis in the office showed +1 blood and trace esterase, was negative otherwise. Bilateral renal ultrasound in the office showed an 8-mm calculus at the left ureteropelvic junction associated with mild left hydronephrosis. There were good bilateral ureteral jets. Because of the above findings, the size of the stone, its proximal location, and the likelihood it will give her an episode of renal colic and in anticipation for definitive treatment of the stone, placement of a left ureteral stent was advised and accepted. PAST MEDICAL HISTORY AND SYSTEM REVIEW: The patient is hypertensive, maintained on losartan 50 mg daily. She has hyperlipidemia, on lovastatin 40 mg daily. She is on 1 baby aspirin per day. She takes tramadol as needed for back pain. She is a prediabetic and has been on metformin. PAST SURGICAL HISTORY: She had right knee surgery 1 year ago [place] [facility] [place] ALLERGIES: She reports being allergic to PENICILLIN, which gives her hives. FAMILY HISTORY: Negative for renal diseases or calculi. Her father had colon cancer. SOCIAL HISTORY: She is a nonsmoker. No recreational drugs. Negative mental health history. She works in the school system. PHYSICAL EXAMINATION GENERAL: She is an overweight white female who has some difficulty ambulating because of her knee. VITAL SIGNS: Blood pressure 150/90, pulse of 70. LUNGS: Clear. HEART: Regular and rhythmic. No murmurs. ABDOMEN: Soft. No masses, no tenderness, and no CVA tenderness. IMPRESSION: 1. Recent episode of gross hematuria with an 8-mmm calculus at the left ureteropelvic junction. 2. Hypertension. 3. Diabetes. 4. Hyperlipidemia. PLAN/RECOMMENDATIONS: Plan is for cystoscopy to rule out any bladder lesions causing the hematuria, and for insertion of left ureteral stent in preparation for definitive treatment of the stone. I discussed the above plans in detail with the patient. All her questions were answered. [id number]/[facility] #: [id number] MTDD
[~2019-11-09 08:12] MED LIST changes: +EPHEDrine (Pressors)* 50 MG/ML VIAL ONE; +Esmolol* 10 MG/ML 10 ML (100 mg) ONE; +Famotidine IV* 10 MG/ML 2 ML (20 mg) IV ONE; +Famotidine IV* 10 MG/ML 2 ML (20 mg) ONE; +Gentamicin ADULT (*) 160 MG in NS 0.9% 100 ML* 100 ML IVPB ONE; +Glycopyrrolate IV* 0.2 MG/ML 1 ML VIAL ONE; +Iohexol 180 (CONTRAST) 10 ML SDV IV ONE; +Ketorolac INJ* 30 MG/ML 1 ML VIAL ONE; +Lactated Ringers 1000 ML Bag* 1,000 ML IV SCH; +Lidocaine 2% PF * 5 ML VIAL ONE; +Metoclopramide IV* 5 MG/ML 2 ML VIAL IV SLOW PU ONE; +Metoclopramide IV* 5 MG/ML 2 ML VIAL ONE; +Midazolam* 1 MG/ML 2 ML VIAL (2 MG) ONE; +Neostigmine Methylsulfate* 3 MG/3 ML SYRINGE ONE; +Ondansetron INJ* 2 MG/ML VIAL ONE; +Propofol* 10 MG/ML 20 ML BTL ONE; +fentaNYL* 50 MCG/ML 2 ML VIAL (100 MCG VIAL) ONE
[2019-11-09 11:52] LABS: BUN/Creatinine Ratio 20.9 (8-20); Calcium 8.5 mg/dL (8.6-10.3); EGFR African American 108.6 (>60); EGFR Non-African American 89.8 (>60); Potassium 3.7 mmol/L (3.5-5.0); Uric Acid 4.3 mg/dL (2.3-6.6)
[2019-11-09 12:00] LABS: Activated Partial Thrombo Time 33.1 seconds (26.0-38.0); INR 0.98 (0.82-1.09)
[2019-11-09 12:25] VITALS: BP 141/74
--- NOTE | 2019-11-09 22:12 | OP ---
CC: Dr. Celeste Mullen * DATE OF OPERATION: 11/09/19 - [facility] DATE OF : 58 SURGEON: Shay Lynne MD ANESTHESIOLOGIST: Dr. Dane Louis. ANESTHESIA: General. PRE-OP DIAGNOSES: 1. Left ureteropelvic junction renal calculus. 2. Gross hematuria due to above. POST-OP DIAGNOSES: 1. Left ureteropelvic junction renal calculus. 2. Gross hematuria due to above. OPERATIVE PROCEDURE: 1. Cystoscopy. 2. Left retrograde pyelography. 3. Insertion of left ureteral stent (6 Bulgarian). INDICATIONS: Mrs. Neal is a 59-year-old white female, who is tone former and had passed a right renal calculus last year. At that time on her imaging, she was noted to have a left renal calculus. The patient presented to the office with recurrent episodes of gross painless hematuria. Renal ultrasound in the office showed an 8 mm calculus at the left ureteropelvic junction associated with mild left hydronephrosis. Because of the above history, the patient is admitted for left ureteral stent placement in preparation for definitive treatment of the stone. PATHOLOGY: Fluoroscopy before starting the case did not clearly show a radiopaque calculus in the area of the left kidney. At cystoscopy, the bladder mucosa looked normal. There were no suspicious bladder lesions seen. No calculi or diverticula were noted. Blood efflux was see coming from the left ureteral orifice. Upon left retrograde pyelography, the left ureter looked normal. There was a filling defect noted at the level of the ureteropelvic junction. There was no hydronephrosis noted and no other abnormal filling defects noted in the collecting system. Following placement of the stent, bloody efflux was again seen coming from the left kidney. DESCRIPTION OF PROCEDURE: After successful general anesthesia, the patient was placed in the lithotomy position and was prepped and draped for a cystoscopy. Cystoscopy was performed. The bladder was carefully inspected and the above findings were noted. A flexible tip guidewire was then introduced and positioned in the distal left ureter. An open ended catheter was fed on top of the guidewire and retrograde pyelography was performed demonstrating the whole left ureter, the collecting system and showing the pathology at the ureteropelvic junction. The guidewire was then introduced inside the renal pelvis. A size 6-Bulgarian stent was then placed with the proximal end coiling in the renal pelvis and the distal end coiling inside the bladder. There was good drainage of contrast from the kidney. The patient tolerated the procedure well and left the operating room in good condition. On today's fluoroscopy, the calculus was not clearly seen. The plan is to obtain a KUB and blood for serum uric acid before the patient's discharge. Depending upon those results, we will decide on the definitive treatment of the stone. [id number]/[facility] #: [id number] [facility]
== END | disposition home or self-care (01) ==
LOC: OR 08:12
PROVIDERS: ATTEND Urology
DX: N13.2 Hydronephrosis with renal and ureteral calculous obstruction (principal); R31.0 Gross hematuria; I10 Essential (primary) hypertension; E78.5 Hyperlipidemia, unspecified; Z88.0 Allergy status to penicillin; Z87.442 Personal history of urinary calculi; E11.9 Type 2 diabetes mellitus without complications; Z79.84 Long term (current) use of oral hypoglycemic drugs; M19.90 Unspecified osteoarthritis, unspecified site; Z68.39 Body mass index [BMI] 39.0-39.9, adult
CPT/HCPCS: 36415; 74018; 74420; 80048; 84550; 85610; 85730; C1876; J1580; J1885; J2250; J2405; J2704; J2710; J2765; J3010

== ENCOUNTER 2019-12-17 05:57 | Day surgery (SDC) | payer BC ==
--- NOTE | 2019-12-12 16:48 | HP ---
CC: Dr. Mullen* DATE OF PLANNED ADMISSION AND SURGERY: 12/17/19 HISTORY OF PRESENT ILLNESS: Mrs. Neal is a 59-year-old white female who is admitted with a left renal calculus, status post placement left ureteral stent for shockwave lithotripsy of left renal calculus, and possible cystoscopy and removal or left ureteral stent. Mrs. Neal presented about 5 weeks ago with symptoms of left renal colic and was noted to have an 8 to 10 mm calculus at the left ureteropelvic junction. She underwent placement of left ureteral stent. Post-operative KUB showed the stone to have migrated into the area of the left renal pelvis. The patient's shockwave lithotripsy was delayed because of the C-19 epidemic. However, considering the duration the stent has been in place, and the fact that the situation at this time seems to be manageable with the epidemic, the patient is brought in for shockwave lithotripsy of the left renal calculus with possible cystoscopy and removal of left ureteral stent. Her past history is otherwise negative. No history of any other renal diseases and no history of urinary tract infection. PAST MEDICAL HISTORY AND SYSTEM REVIEW: She is hypertensive maintained on losartan 50 mg daily. She is a prediabetic and has been on metformin. She has had hyperlipidemia, on lovastatin 40 mg daily. She takes tramadol as needed for pain. She has been on 1 baby aspirin which was discontinued before the procedure. PAST SURGICAL HISTORY: She had a right knee surgery about a year ago [place] [facility] [place]. ALLERGIES: She reports being allergic to PENICILLIN which gives her hives. FAMILY HISTORY: Negative for renal diseases or calculi. SOCIAL HISTORY: She is a nonsmoker. No recreational drug use. Negative mental history. 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 PHYSICAL EXAMINATION GENERAL: She is a pleasant, moderately overweight white female, who has some difficulty ambulating because of knee pain. VITAL SIGNS: Blood pressure 150/80, pulse of 70. LUNGS: Clear. HEART: Regular and rhythmic. No murmurs. ABDOMEN: Soft. No masses, no tenderness, and no CVA tenderness. IMPRESSION: A 1 cm left renal calculus, status post placement left ureteral stent. PLAN: Shockwave lithotripsy of the left renal calculus and if there is good fragmentation of the stone, followed by cystoscopy and removal of the left ureteral stent. I discussed the above plans in detail with the patient. Some of the potential complications including hematuria, renal hematoma and possible left renal colic requiring ureteroscopy were all discussed. All her questions were answered. [id number]/[facility] #: [id number] ANTHONY
[~2019-12-17 05:57] MED LIST changes: -EPHEDrine (Pressors)* 50 MG/ML VIAL ONE; -Esmolol* 10 MG/ML 10 ML (100 mg) ONE; -Famotidine IV* 10 MG/ML 2 ML (20 mg) IV ONE; -Famotidine IV* 10 MG/ML 2 ML (20 mg) ONE; -Gentamicin ADULT (*) 160 MG in NS 0.9% 100 ML* 100 ML IVPB ONE; -Glycopyrrolate IV* 0.2 MG/ML 1 ML VIAL ONE; -Iohexol 180 (CONTRAST) 10 ML SDV IV ONE; -Ketorolac INJ* 30 MG/ML 1 ML VIAL ONE; -Lactated Ringers 1000 ML Bag* 1,000 ML IV SCH; -Lidocaine 2% PF * 5 ML VIAL ONE; -Metoclopramide IV* 5 MG/ML 2 ML VIAL IV SLOW PU ONE; -Metoclopramide IV* 5 MG/ML 2 ML VIAL ONE; -Midazolam* 1 MG/ML 2 ML VIAL (2 MG) ONE; -Neostigmine Methylsulfate* 3 MG/3 ML SYRINGE ONE; -Ondansetron INJ* 2 MG/ML VIAL ONE; -Propofol* 10 MG/ML 20 ML BTL ONE; -fentaNYL* 50 MCG/ML 2 ML VIAL (100 MCG VIAL) ONE
[2019-12-17] MEDS ORDERED: Lactated Ringers 1000 ML Bag* 1,000 ML IV SCH (06:00)
[2019-12-17] MEDS ORDERED: Famotidine IV* 10 MG/ML 2 ML (20 mg) IV ONE (06:00)
[2019-12-17] MEDS ORDERED: Acetaminophen TAB* 325 MG PO ONE (06:00)
[2019-12-17] MEDS ORDERED: Acetaminophen TAB* 325 MG ONE (06:22)
[2019-12-17] MEDS ORDERED: Buffered Lidocaine 1% SYRIN* 1 ML/SYRINGE INTRADERM ONE (06:22)
[2019-12-17] MEDS ORDERED: Famotidine IV* 10 MG/ML 2 ML (20 mg) ONE (06:22)
[2019-12-17] MEDS ORDERED: Gentamicin ADULT (*) 160 MG in NS 0.9% 100 ML* 100 ML IVPB ONE (07:00)
[2019-12-17] MEDS ORDERED: Lidocaine 2% JELLY* 6 ML JELLY TOPICAL ONE (07:12)
[2019-12-17] MEDS ORDERED: Midazolam* 1 MG/ML 2 ML VIAL (2 MG) ONE (07:36)
[2019-12-17] MEDS ORDERED: Lidocaine 2% PF * 5 ML VIAL ONE (07:48)
[2019-12-17] MEDS ORDERED: Rocuronium* 10 MG/ML VIAL ONE (07:48)
[2019-12-17] MEDS ORDERED: Dexamethasone IV* 4 MG/ML 1 ML (4 MG) ONE (07:49)
[2019-12-17] MEDS ORDERED: Propofol* 10 MG/ML 20 ML BTL ONE (07:49)
[2019-12-17] MEDS ORDERED: fentaNYL* 50 MCG/ML 2 ML VIAL (100 MCG VIAL) ONE (08:04)
[2019-12-17] MEDS ORDERED: fentaNYL* 50 MCG/ML 2 ML VIAL (100 MCG VIAL) IV PRN (08:07)
[2019-12-17] MEDS ORDERED: Ondansetron INJ* 2 MG/ML VIAL IV PRN (08:07)
[2019-12-17] MEDS ORDERED: HYDROcodone/ACETAMIN 5-325 MG* 1 TAB PO PRN (08:07)
[2019-12-17] MEDS ORDERED: Naloxone* 0.4 MG/ML 1 ML VIAL IV PRN (08:07)
[2019-12-17] MEDS ORDERED: DiMENhydriNATE IV* 50 MG/ML VIAL IV PUSH PRN (08:07)
[2019-12-17 10:07] VITALS: BP 128/64
--- NOTE | 2019-12-17 10:07 | OP ---
CC: Dr. Celeste Mullen* OPERATIVE REPORT: DATE OF OPERATION: 12/17/19 - [facility] DATE OF : 58 SURGEON: Shay Lynne MD ANESTHESIOLOGIST: Dr. Erwin Clark. ANESTHESIA: General. PRE-OP DIAGNOSES: 1. Left renal calculus. 2. Status post placement left ureteral stent. POST-OP DIAGNOSES: 1. Left renal calculus. 2. Status post placement left ureteral stent. OPERATIVE PROCEDURE: 1. Shockwave lithotripsy of left renal calculus (8 mm). 2. Cystoscopy and removal of left ureteral stent. INDICATION FOR PROCEDURE: Ms. Neal is a 59-year-old white female who presented about 5 weeks ago with symptoms of left renal colic and was noted to have an 8-mm calculus at the left ureteropelvic junction. She had urgent placement of left ureteral stent. Postoperative KUB showed the stone to have migrated into the left renal pelvis. The patient is now being brought in for definitive treatment of the stone. PATHOLOGY: Preoperative KUB showed an 8-mm faintly radiopaque calculus within the proximal loop of the ureteral stent in the left renal pelvis. DESCRIPTION OF PROCEDURE: After successful general anesthesia, the patient was placed in the supine position on the shockwave lithotripsy table. The left renal calculus was visualized in both the PA and oblique x-ray views and the position of the patient and of the generator were adjusted to have the stone in the focus of the shock waves. A total of 2000 shocks were then delivered at a rate of 60 shocks per minute. Two minutes break was taken after the initial 300 shocks. The proper positioning and fragmentation of the stone were monitored periodically. At the completion of the treatment, there was very good fragmentation of the stone. Decision was made to remove the stent. The patient was placed in the frog-leg position and was prepped and draped for cystoscopy. Cystoscopy was performed. As expected, the urine drained from the bladder was bloody. The stent was removed intact. The patient tolerated the procedure well and left the operating room in good condition. Instructions were given for followup care. [id number]/[facility] #: [id number] MTDD
== END 2019-12-17 10:11 | disposition home or self-care (01) ==
LOC: OR 05:57
PROVIDERS: ATTEND Urology
DX: N20.0 Calculus of kidney (principal); I10 Essential (primary) hypertension; Z87.891 Personal history of nicotine dependence; E11.9 Type 2 diabetes mellitus without complications; Z79.84 Long term (current) use of oral hypoglycemic drugs; M19.90 Unspecified osteoarthritis, unspecified site; E78.5 Hyperlipidemia, unspecified; Z88.0 Allergy status to penicillin
CPT/HCPCS: 74018; A9270-GY; J1100; J1580; J2250; J2704; J3010